=== PATIENT | male | born 1960 | race Caucasian/White ===

== ENCOUNTER 2020-03-25 07:35 | Outpatient (REF) | payer MEDICARE, SELFPAY ==
[2020-03-25 08:45] LABS: MANUAL DIFF FLAG NO
[2020-03-25 08:50] LABS: Basophils Percent Auto 0.3 % (0-2); Eosinophils Absolute Auto 0.2 X10*3/uL (0.0-0.4); Eosinophils Percent Auto 2.4 % (0-4); Hemoglobin 13.1 g/dl (14.0-18.0); Imm Gran Abs Auto 0.03 X10*3/uL (0.00-0.03); Imm Gran Pct Auto 0.5 % (0.0-0.4); Lymphocytes Absolute Auto 2.2 X10*3/uL (1.2-4.9); Lymphocytes Percent Auto 35.3 % (20-40); Mean Corpuscular HGB Conc 33.6 g/dl (31.0-36.0); Mean Corpuscular Hemoglobin 31.2 pg (27.0-33.0); Mean Corpuscular Volume 92.9 fL (80-98); Mean Platelet Volume 11.1 fL (9.4-12.4); Monocytes Absolute Auto 0.6 X10*3/uL (0.1-1.2); Neutrophils Absolute Auto 3.3 X10*3/uL (2.0-8.3); Neutrophils Percent Auto 52.5 % (45-73); Platelet Count 233 X10*3/uL (160-400); Red Cell Distribution Width 12.6 % (11.0-16.0); White Blood Count 6.2 X10*3/uL (4.8-10.8)
[2020-03-25 09:13] LABS: Alanine Aminotransferase 33 U/L (0-40); Albumin Level 4.6 g/dL (3.5-5.0); Alkaline Phosphatase 56 U/L (39-117); Anion Gap 12 (12-20); Aspartate Amino Transferase 25 U/L (5-37); Bilirubin Total 0.6 mg/dL (0.0-1.0); Blood Urea Nitrogen 12 mg/dL (9-16); Calcium 9.2 mg/dL (8.4-10.2); Carbon Dioxide 27 mmol/L (22-29); Chloride 106 mmol/L (96-108); Cholesterol 188 mg/dL; Estimated Glomerular Filt Rate > 60; Glucose Fasting 97 mg/dL (60-99); HDL Cholesterol 32 mg/dL; Iron 172 mcg/dL (45-160); LDL Cholesterol Calculated 95 mg/dl; Percent Iron Saturation 42 % (15-50); Potassium 4.4 mmol/l (3.3-5.1); Sodium 141 mmol/L (135-145); Total Iron Binding Capacity 412 mcg/dL (228-428); Total Protein 6.9 g/dL (6.5-8.0); Triglycerides 305 mg/dL; Unsaturated Iron Binding 240 ug/dL
== END 2020-03-25 07:36 | disposition home or self-care (01) ==
LOC: HO.LAB 07:35
PROVIDERS: Visit Provider Internal Medicine
DX: E78.5 Hyperlipidemia, unspecified (principal); I10 Essential (primary) hypertension; D64.9 Anemia, unspecified
CPT/HCPCS: 36415; 80053; 80061; 83540; 85025

== ENCOUNTER 2020-04-24 10:35 | Outpatient (REF) | payer MEDICARE, SELFPAY ==
[2020-04-24 13:38] LABS: Iron 158 mcg/dL (45-160); Percent Iron Saturation 36 % (15-50); Total Iron Binding Capacity 444 mcg/dL (228-428); Unsaturated Iron Binding 286 ug/dL
[2020-04-24 13:56] LABS: Ferritin 221 ng/mL (20-250); Vitamin D 25-OH Total 15.6 ng/mL (>30)
== END 2020-04-24 10:36 | disposition home or self-care (01) ==
LOC: HO.10HDL 10:35
PROVIDERS: PCP Internal Medicine; Visit Provider Internal Medicine
DX: N40.0 Benign prostatic hyperplasia without lower urinary tract symptoms (principal); D64.9 Anemia, unspecified; I10 Essential (primary) hypertension
CPT/HCPCS: 82306; 82728; 83540; 84153

== ENCOUNTER 2020-08-04 08:49 | Outpatient (REF) | payer MEDICARE, MEDICAID, SELFPAY ==
--- NOTE | ~2020-08-04 | XR_ITS ---
EXAMINATION: XR LUMBOSACRAL SPINE CLINICAL INFORMATION: Low back pain. COMPARISON: None TECHNIQUE: 3 views. FINDINGS: There is normal lumbar lordosis. The vertebral heights, alignment and disc heights are normal. There is no visible acute fracture or dislocation. No lytic process is seen. There are large bridging osteophytes ventrally and laterally at the upper and mid lumbar spine level. The paravertebral soft tissues are normal. XR/XR lumbar spine 2-3V IMPRESSION: Large bridging syndesmophytes in ventral and lateral upper and mid lumbar spine region. No acute fracture or lytic process.
[2020-08-04 10:10] LABS: Anion Gap 14 (12-20); Blood Urea Nitrogen 13 mg/dL (9-16); Calcium 9.9 mg/dL (8.4-10.2); Carbon Dioxide 27 mmol/L (22-29); Chloride 104 mmol/L (96-108); Cholesterol 178 mg/dL; Estimated Glomerular Filt Rate > 60; Glucose Fasting 112 mg/dL (60-99); HDL Cholesterol 37 mg/dL; LDL Cholesterol Calculated 93 mg/dl; Potassium 4.6 mmol/L (3.3-5.1); Sodium 140 mmol/L (135-145); Triglycerides 243 mg/dL
[2020-08-04 10:33] LABS: Vitamin D 25-OH Total 28.3 ng/mL (>30)
== END 2020-08-04 08:50 | disposition home or self-care (01) ==
LOC: HO.LAB 08:49
PROVIDERS: PCP Internal Medicine; Visit Provider Internal Medicine
DX: E78.1 Pure hyperglyceridemia (principal); M54.9 Dorsalgia, unspecified; E55.9 Vitamin D deficiency, unspecified
CPT/HCPCS: 36415; 72100; 80048; 80061; 82306

== ENCOUNTER 2020-08-12 07:13 | Outpatient (REF) | payer MEDICARE, MEDICAID, SELFPAY ==
--- NOTE | ~2020-08-12 | MR_ITS ---
EXAMINATION: MR LUMBAR SPINE WITHOUT CONTRAST CLINICAL INFORMATION: Lower back pain. Bridging osteophyte on x-ray. COMPARISON: Plain films of the lumbar spine 08/04/2020. TECHNIQUE: MRI of the lumbar spine was obtained using routine sequences without contrast. FINDINGS: VERTEBRAL BODIES AND PARASPINAL STRUCTURES: There is anatomic alignment of the vertebral bodies. There is loss of signal from the intervertebral discs at L3-L4, L4-L5 and L5-S1. There are multilevel degenerative endplate contour changes. Fatty endplate changes seen anteriorly at multiple levels. Vertebral body heights are maintained and no fractures are demonstrated. There is an area of increased T1 and T2 signal in the body of L5 inferiorly and anteriorly, most consistent with a hemangioma. As demonstrated on the x-rays, there are prominent bridging osteophytes on the right at L1-L2 and L2-L3, and there are anterior osteophytes at multiple levels, most prominent at L3-L4 toward the right. Overall, marrow signal is homogenous. There are bilateral renal cysts, the largest at the upper pole of the right kidney. There are moderate to severe degenerative changes of the sacroiliac joints. Visualized pelvic structures are unremarkable. There is moderate atrophy of the paraspinal and psoas muscles. CONUS MEDULLARIS AND CAUDA EQUINA: Normal, terminating at the level of L1. The lower thoracic spinal cord appears normal. The cauda equina nerve roots and filum terminale appear normal. SPINAL LEVELS: T12-L1: There is mild bilateral facet arthropathy. Disc contour is normal. No central stenosis or foraminal narrowing. L1-L2: There is mild left facet arthropathy with small facet joint effusion. Disc contour is normal. There is no central stenosis. The neural foramina are patent bilaterally. L2-L3: There is bilateral facet arthropathy with a small facet joint effusion on the right. Posterior disc contour is normal. There is no central stenosis. The neural foramina are patent bilaterally. L3-L4: There is mild to moderate bilateral facet arthropathy with ligamenta flava hypertrophy and facet joint effusions. There is a mild diffuse disc bulge, but there is no central stenosis and neural foramina are patent. L4-L5: There is mild to moderate bilateral facet arthropathy. There is a posterior disc protrusion with an annular fissure which extends into the neural foramina bilaterally, more prominently on the left, and there is impingement on the exiting left L4 nerve root inferiorly. There is mild narrowing of the bilateral subarticular recesses. There is no central stenosis. L5-S1: There is moderate bilateral facet arthropathy. There is a central and right paracentral disc protrusion which distorts the ventral thecal sac and impinges on and displaces the traversing right S1 nerve root. The protrusion extends into the inferior right neural foramen with impingement on the exiting right L5 nerve root. There is mild to moderate central stenosis. MR/MR lumbar spine wo con IMPRESSION: 1. At L5-S1 there is a posterior disc protrusion which distorts the ventral thecal sac and impinges on the traversing right S1 nerve root. There is also impingement on the exiting right L5 nerve root. 2. At L4-L5 there is facet arthropathy and is a posterior disc protrusion more prominent on the left, and there is impingement on the exiting left L4 nerve root. There is narrowing of the bilateral subarticular recesses. 3. Milder spondylitic and facet arthropathic changes are demonstrated at other levels as described above. Prominent marginal osteophytes are seen at multiple levels, most likely degenerative.
== END 2020-08-12 07:14 | disposition home or self-care (01) ==
LOC: HO.MRI 07:13
PROVIDERS: Visit Provider Internal Medicine
DX: M54.5 Low back pain (principal); M25.78 Osteophyte, vertebrae
CPT/HCPCS: 72148

== ENCOUNTER 2021-03-31 06:36 | Outpatient (REF) | payer MEDICARE, MEDICAID, SELFPAY ==
[2021-03-31 06:46] LABS: MANUAL DIFF FLAG NO
[2021-03-31 07:23] LABS: Appearance Urine CLEAR; Color Urine YELLOW; Glucose Urine UA NEG (NEG); Leukocyte Esterase Urine NEG (NEG); Nitrite Urine NEG (NEG); Specific Gravity - Urine 1.025 (1.005-1.025); Urine Blood NEG (NEG); Urine Ketones NEG (NEG); Urine Protein NEG (NEG-TRACE)
[2021-03-31 07:25] LABS: Basophils Percent Auto 0.4 % (0-2); Eosinophils Absolute Auto 0.2 X10*3/uL (0.0-0.4); Eosinophils Percent Auto 2.7 % (0-4); Hematocrit 40.7 % (42.0-52.0); Hemoglobin 13.6 g/dl (14.0-18.0); Imm Gran Abs Auto 0.01 X10*3/uL (0.00-0.03); Imm Gran Pct Auto 0.1 % (0.0-0.4); Lymphocytes Absolute Auto 2.7 X10*3/uL (1.2-4.9); Lymphocytes Percent Auto 39.7 % (20-40); Mean Corpuscular HGB Conc 33.4 g/dl (31.0-36.0); Mean Corpuscular Hemoglobin 30.8 pg (27.0-33.0); Mean Corpuscular Volume 92.3 fL (80.0-98.0); Mean Platelet Volume 11.3 fL (9.4-12.4); Monocytes Absolute Auto 0.6 X10*3/uL (0.1-1.2); Monocytes Percent Auto 9.4 % (2-11); Neutrophils Absolute Auto 3.2 x10*3/uL (2.0-8.3); Neutrophils Percent Auto 47.7 % (45-73); Platelet Count 283 X10*3/uL (160-400); Red Blood Count 4.41 X10*6/uL (4.60-5.80); Red Cell Distribution Width 12.4 % (11.0-16.0); White Blood Count 6.7 X10*3/uL (4.8-10.8)
[2021-03-31 07:56] LABS: Estimated Average Glucose 114 mg/dL; Hemoglobin A1c % 5.6 %
[2021-03-31 07:59] LABS: Microalbum/Creatinine Ratio Ur 8.5 ug/mg cr
[2021-03-31 08:20] LABS: Alanine Aminotransferase 32 U/L (0-40); Albumin Level 4.9 g/dL (3.5-5.0); Alkaline Phosphatase 63 U/L (39-117); Anion Gap 12 (12-20); Aspartate Amino Transferase 25 U/L (5-37); Bilirubin Total 0.7 mg/dL (0.0-1.0); Blood Urea Nitrogen 14 mg/dL (9-16); Calcium 10.4 mg/dL (8.4-10.2); Carbon Dioxide 27 mmol/L (22-29); Chloride 107 mmol/L (96-108); Cholesterol 179 mg/dL; Estimated Glomerular Filt Rate > 60; Glucose Fasting 117 mg/dL (60-99); HDL Cholesterol 34 mg/dL; LDL Cholesterol Calculated 101 mg/dl; Potassium 4.3 mmol/L (3.3-5.1); Sodium 142 mmol/L (135-145); Total Protein 7.5 g/dL (6.5-8.0); Triglycerides 222 mg/dL
[2021-03-31 08:25] LABS: Prostate Specific Antigen Scr 0.62 ng/mL (<0.05-4.0); Vitamin D 25-OH Total 29.6 ng/mL (>30)
== END 2021-03-31 06:37 | disposition home or self-care (01) ==
LOC: HO.LAB 06:36
PROVIDERS: PCP Internal Medicine; Visit Provider Internal Medicine
DX: Z00.00 Encounter for general adult medical examination without abnormal findings (principal); E78.5 Hyperlipidemia, unspecified; I10 Essential (primary) hypertension; R35.1 Nocturia; R73.03 Prediabetes; E55.9 Vitamin D deficiency, unspecified; Z12.5 Encounter for screening for malignant neoplasm of prostate
CPT/HCPCS: 36415; 80053; 80061; 81003; 82043; 82306; 83036; 84153; 85025

== ENCOUNTER 2022-02-02 07:32 | Outpatient (REF) | payer MEDICARE, MEDICAID, SELFPAY ==
[2022-02-02 07:42] LABS: MANUAL DIFF FLAG NO
[2022-02-02 08:18] LABS: Basophils Absolute Auto 0.1 X10*3/uL (0.0-0.2); Basophils Percent Auto 0.8 % (0-2); Eosinophils Absolute Auto 0.2 X10*3/uL (0.0-0.4); Eosinophils Percent Auto 2.8 % (0-4); Hemoglobin 13.4 g/dl (14.0-18.0); Imm Gran Abs Auto 0.02 X10*3/uL (0.00-0.03); Imm Gran Pct Auto 0.3 % (0.0-0.4); Lymphocytes Absolute Auto 2.5 X10*3/uL (1.2-4.9); Lymphocytes Percent Auto 39.3 % (20-40); Mean Corpuscular HGB Conc 33.5 g/dl (31.0-36.0); Mean Corpuscular Hemoglobin 30.9 pg (27.0-33.0); Mean Corpuscular Volume 92.4 fL (80.0-98.0); Mean Platelet Volume 11.2 fL (9.4-12.4); Monocytes Absolute Auto 0.7 X10*3/uL (0.1-1.2); Monocytes Percent Auto 10.7 % (2-11); Neutrophils Percent Auto 46.1 % (45-73); Platelet Count 289 X10*3/uL (160-400); Red Blood Count 4.33 X10*6/uL (4.60-5.80); Red Cell Distribution Width 12.7 % (11.0-16.0); White Blood Count 6.5 X10*3/uL (4.8-10.8)
[2022-02-02 08:20] LABS: Estimated Average Glucose 114 mg/dL; Hemoglobin A1c % 5.6 %
[2022-02-02 08:43] LABS: Creatinine Urine 116.11 mg/dL
[2022-02-02 08:45] LABS: Alanine Aminotransferase 29 U/L (0-40); Albumin Level 4.8 g/dL (3.5-5.0); Alkaline Phosphatase 63 U/L (39-117); Anion Gap 16 (12-20); Aspartate Amino Transferase 28 U/L (5-37); Bilirubin Total 0.4 mg/dL (0.0-1.0); Blood Urea Nitrogen 12 mg/dL (9-16); Calcium 9.7 mg/dL (8.4-10.2); Carbon Dioxide 25 mmol/L (22-29); Chloride 105 mmol/L (96-108); Cholesterol 170 mg/dL; Estimated Glomerular Filt Rate > 60; Glucose Fasting 113 mg/dL (60-99); HDL Cholesterol 33 mg/dL; LDL Cholesterol Calculated 97 mg/dl; Potassium 4.4 mmol/L (3.3-5.1); Sodium 142 mmol/L (135-145); Total Protein 7.6 g/dL (6.5-8.0); Triglycerides 201 mg/dL
[2022-02-02 09:08] LABS: Prostate Specific Antigen 0.59 ng/mL (<0.05-4.0)
== END 2022-02-02 07:33 | disposition home or self-care (01) ==
LOC: HO.LAB 07:32
PROVIDERS: PCP Internal Medicine; Visit Provider Internal Medicine
DX: Z12.5 Encounter for screening for malignant neoplasm of prostate (principal); R73.03 Prediabetes; N40.0 Benign prostatic hyperplasia without lower urinary tract symptoms; M19.90 Unspecified osteoarthritis, unspecified site; E78.5 Hyperlipidemia, unspecified
CPT/HCPCS: 36415; 80053; 80061; 82043; 83036; 84153; 85025

== ENCOUNTER 2022-08-12 07:39 | Outpatient (REF) | payer MEDICARE, MEDICAID, SELFPAY ==
--- NOTE | ~2022-08-12 | XR_ITS ---
EXAMINATION: XR KNEES, STANDING AP BILATERAL XR KNEE, RIGHT XR KNEE, LEFT CLINICAL INFORMATION: Bilateral knee pain. COMPARISON: Standing AP knees and left knee radiographs 06/12/2013. TECHNIQUE: Bilateral standing AP view of the knees is performed. Each knee is also imaged in lateral and axial patella views. FINDINGS: Right: Prior total knee arthroplasty. Hardware intact. Prosthesis appears similar to prior exam. No fracture, dislocation, destructive process, or osteolysis. No suprapatellar effusion. Axial view patella shows no lateralization or tilting. Left: Prior knee arthroplasty. Hardware intact. Prosthesis appears similar to prior exam. No fracture, dislocation, destructive process, or osteolysis. Small corticated heterotopic bone anterior knee is stable from prior radiographs 2013. Axial view patella shows mild patellofemoral joint narrowing with lateral patellar spur. No lateralization or tilting patella. XR/XR knee standing BI IMPRESSION: -Bilateral: Prior knee arthroplasty. Hardware intact. No destructive process. No effusion. -Left: Mild patellofemoral joint narrowing with lateral patellar spur.
--- NOTE | ~2022-08-12 | XR_ITS ---
EXAMINATION: XR KNEES, STANDING AP BILATERAL XR KNEE, RIGHT XR KNEE, LEFT CLINICAL INFORMATION: Bilateral knee pain. COMPARISON: Standing AP knees and left knee radiographs 06/12/2013. TECHNIQUE: Bilateral standing AP view of the knees is performed. Each knee is also imaged in lateral and axial patella views. FINDINGS: Right: Prior total knee arthroplasty. Hardware intact. Prosthesis appears similar to prior exam. No fracture, dislocation, destructive process, or osteolysis. No suprapatellar effusion. Axial view patella shows no lateralization or tilting. Left: Prior knee arthroplasty. Hardware intact. Prosthesis appears similar to prior exam. No fracture, dislocation, destructive process, or osteolysis. Small corticated heterotopic bone anterior knee is stable from prior radiographs 2013. Axial view patella shows mild patellofemoral joint narrowing with lateral patellar spur. No lateralization or tilting patella. XR/XR knee RT 2V IMPRESSION: -Bilateral: Prior knee arthroplasty. Hardware intact. No destructive process. No effusion. -Left: Mild patellofemoral joint narrowing with lateral patellar spur.
--- NOTE | ~2022-08-12 | XR_ITS ---
EXAMINATION: XR KNEES, STANDING AP BILATERAL XR KNEE, RIGHT XR KNEE, LEFT CLINICAL INFORMATION: Bilateral knee pain. COMPARISON: Standing AP knees and left knee radiographs 06/12/2013. TECHNIQUE: Bilateral standing AP view of the knees is performed. Each knee is also imaged in lateral and axial patella views. FINDINGS: Right: Prior total knee arthroplasty. Hardware intact. Prosthesis appears similar to prior exam. No fracture, dislocation, destructive process, or osteolysis. No suprapatellar effusion. Axial view patella shows no lateralization or tilting. Left: Prior knee arthroplasty. Hardware intact. Prosthesis appears similar to prior exam. No fracture, dislocation, destructive process, or osteolysis. Small corticated heterotopic bone anterior knee is stable from prior radiographs 2013. Axial view patella shows mild patellofemoral joint narrowing with lateral patellar spur. No lateralization or tilting patella. XR/XR knee LT 2V IMPRESSION: -Bilateral: Prior knee arthroplasty. Hardware intact. No destructive process. No effusion. -Left: Mild patellofemoral joint narrowing with lateral patellar spur.
== END 2022-08-12 07:40 | disposition home or self-care (01) ==
LOC: HO.HOSX 07:39
PROVIDERS: Visit Provider Physician Assistant
DX: M25.561 Pain in right knee (principal); Z96.652 Presence of left artificial knee joint
CPT/HCPCS: 73560; 73565; 99202

== ENCOUNTER → 2022-08-26 10:37 | Outpatient (BNVA) | payer MEDICARE, MEDICAID, SELFPAY | PROVIDERS: PCP Internal Medicine; Visit Provider Orthopaedic Surgery | DX: T84.84XA Pain due to internal orthopedic prosthetic devices, implants and grafts, initial encounter (principal); Z96.652 Presence of left artificial knee joint | CPT/HCPCS: 99212 ==

== ENCOUNTER → 2022-09-27 14:17 | Outpatient (BNVA) | payer MEDICARE, MEDICAID, SELFPAY | PROVIDERS: PCP Internal Medicine; Visit Provider Internal Medicine | DX: M25.562 Pain in left knee (principal); Z96.652 Presence of left artificial knee joint | CPT/HCPCS: 99202 ==

== ENCOUNTER 2023-02-15 06:34 | Outpatient (REF) | payer MEDICARE, MEDICAID, SELFPAY ==
[2023-02-15 06:48] LABS: MANUAL DIFF FLAG NO
[2023-02-15 07:20] LABS: Basophils Percent Auto 0.6 % (0-2); Eosinophils Absolute Auto 0.2 X10*3/uL (0.0-0.4); Eosinophils Percent Auto 2.7 % (0-4); Hematocrit 43.6 % (42.0-52.0); Hemoglobin 14.7 g/dl (14.0-18.0); Imm Gran Abs Auto 0.01 X10*3/uL (0.00-0.03); Imm Gran Pct Auto 0.1 % (0.0-0.4); Lymphocytes Absolute Auto 2.5 X10*3/uL (1.2-4.9); Lymphocytes Percent Auto 37.3 % (20-40); Mean Corpuscular HGB Conc 33.7 g/dl (31.0-36.0); Mean Corpuscular Hemoglobin 30.8 pg (27.0-33.0); Mean Corpuscular Volume 91.2 fL (80.0-98.0); Mean Platelet Volume 10.8 fL (9.4-12.4); Monocytes Absolute Auto 0.7 X10*3/uL (0.1-1.2); Monocytes Percent Auto 10.5 % (2-11); Neutrophils Absolute Auto 3.3 x10*3/uL (2.0-8.3); Neutrophils Percent Auto 48.8 % (45-73); Platelet Count 303 X10*3/uL (160-400); Red Blood Count 4.78 X10*6/uL (4.60-5.80); Red Cell Distribution Width 12.6 % (11.0-16.0); White Blood Count 6.7 X10*3/uL (4.8-10.8)
[2023-02-15 07:34] LABS: Estimated Average Glucose 108 mg/dL; Hemoglobin A1c % 5.4 % (<6.0)
[2023-02-15 07:54] LABS: Alanine Aminotransferase 27 U/L (0-40); Alkaline Phosphatase 64 U/L (39-117); Anion Gap 16 (12-20); Aspartate Amino Transferase 25 U/L (5-37); Bilirubin Total 0.6 mg/dL (0.0-1.0); Blood Urea Nitrogen 15 mg/dL (9-16); Calcium 10.3 mg/dL (8.4-10.2); Carbon Dioxide 26 mmol/L (22-29); Chloride 104 mmol/L (96-108); Cholesterol 157 mg/dL (<200); Estimated Glomerular Filt Rate > 60; Glucose Fasting 107 mg/dL (60-99); HDL Cholesterol 36 mg/dL (>40); LDL Cholesterol Calculated 89 mg/dL (<100); Sodium 142 mmol/L (135-145); Total Protein 7.9 g/dL (6.5-8.0); Triglycerides 164 mg/dL (<150)
[2023-02-15 08:16] LABS: Prostate Specific Antigen 0.74 ng/mL (<0.05-4.0)
[2023-02-15 08:37] LABS: Appearance Urine Clear; Color Urine Yellow; Glucose Urine UA Negative (Negative); Leukocyte Esterase Urine Negative (Negative); Nitrite Urine Negative (Negative); PH 6.5 (5.0-9.0); Specific Gravity - Urine 1.015 (1.005-1.025); Urine Blood Negative (Negative); Urine Ketones Negative (Negative); Urine Protein Negative (Neg-Trace)
== END 2023-02-15 06:35 | disposition home or self-care (01) ==
LOC: HO.LAB 06:34
PROVIDERS: PCP Internal Medicine; Visit Provider Internal Medicine
DX: I10 Essential (primary) hypertension (principal); E78.5 Hyperlipidemia, unspecified; R35.1 Nocturia; Z12.5 Encounter for screening for malignant neoplasm of prostate
CPT/HCPCS: 36415; 80053; 80061; 81003; 83036; 84153; 85025

== ENCOUNTER 2023-03-22 06:20 | Day surgery (SDC) | payer MEDICARE, MEDICAID, SELFPAY ==
[2023-03-16 08:27] VITALS: BMI 28.3
--- NOTE | 2023-03-21 08:25 | HO.ANESPROP2 ---
Documented by User: Nila Carter NP 03/21/23 08:26 HPI - Anesthesia Eval Consult details Narrative: 62yo M for Upper Endoscopy and Colonoscopy PMF Active Problems Active Problems: All Active Problems (Updated 03/16/23 @ 08:22 by Sandie Hernandez RN) Left knee pain (Acute) History of left knee replacement (Acute) Past Medical History Medical History GERD (gastroesophageal reflux disease) Hx of seizure disorder Hypertension High cholesterol Surgical History Surgical History Status post left knee replacement H/O colonoscopy Status post right knee replacement Social History Patient Tobacco Use Status: Never used Tobacco Use of substances other than those prescribed or required for medical reasons: Yes Substance Use Frequency: Daily Are you DNR?: No Advance Directives: No Advance Directives Information Provided: Yes Current occupational status: unemployed Meds Allergies Allergy/AdvReac Type Severity Reaction Status Date / Time No Known Allergies Allergy Mild NOT Verified 09/27/22 14:25 APPLICABLE Home Medications Medication Instructions Recorded Confirmed Last Taken Type atorvastatin 80 mg tablet 80 mg PO BEDTIME 08/12/22 09/27/22 Unknown History fenofibrate 160 mg tablet 160 mg PO DAILY 08/12/22 03/16/23 Unknown History levetiracetam 250 mg tablet 250 mg PO BID 08/12/22 09/27/22 Unknown History losartan 50 mg tablet 50 mg PO DAILY 08/12/22 09/27/22 Unknown History gemfibrozil 600 mg tablet 600 mg PO DAILY 03/16/23 03/16/23 Unknown History Exam Height,Weight and Vital Signs: Height 5 ft 8 in Weight 84.368 kg Pertinent Lab Results Pertinent Lab Results: Laboratory Tests 02/15/23 06:44 WBC 6.7 Hgb 14.7 Hct 43.6 Plt Count 303 Sodium 142 Potassium 4.0 Chloride 104 Carbon Dioxide 26 BUN 15 Creatinine 0.76 Assessment and Plan Assessment Anesthesia Assessment: Chart Reviewed Documented by User: Daysi Wing MD 03/22/23 07:53 PMFSH Past Medical History Medical History GERD (gastroesophageal reflux disease) Hx of seizure disorder Hypertension High cholesterol Surgical History Surgical History Status post left knee replacement H/O colonoscopy Status post right knee replacement History of Problems with Anesthesia: No Social History Patient Tobacco Use Status: Never used Tobacco Use of substances other than those prescribed or required for medical reasons: Yes Substance Use Frequency: Daily Are you DNR?: No Advance Directives: No Advance Directives Information Provided: Yes Current occupational status: unemployed Meds Allergies Allergy/AdvReac Type Severity Reaction Status Date / Time No Known Allergies Allergy Mild NOT Verified 09/27/22 14:25 APPLICABLE Home Medications Medication Instructions Recorded Confirmed Last Taken Type atorvastatin 80 mg tablet 80 mg PO BEDTIME 08/12/22 09/27/22 Unknown History fenofibrate 160 mg tablet 160 mg PO DAILY 08/12/22 03/16/23 Unknown History levetiracetam 250 mg tablet 250 mg PO BID 08/12/22 09/27/22 Unknown History losartan 50 mg tablet 50 mg PO DAILY 08/12/22 09/27/22 Unknown History gemfibrozil 600 mg tablet 600 mg PO DAILY 03/16/23 03/16/23 Unknown History Exam Airway Mallampati Class: III TM Dist: >3cm Neck ROM: Full Partial: Upper and Lower Loose/Missing/Broken Teeth: Yes, Upper and Lower Heart: RRR Lungs: CTA Assessment and Plan Assessment Anesthesia Assessment: Anesthesia Plan Discussed Final Anesthetic Review History of Problems with Anesthesia: No NPO: Yes ASA Class: II Final Preanesthetic Review: Meds/Allgs Chart Reviewed, Consent Obtained/Reviewed and Anes Risks/Benef Reviewed Patient Risk: Low Procedure Risk: Intermediate Anesthetic Plan Anesthetic Plan: MAC: Disposition: Standard PACU
[2023-03-22 07:02] VITALS: BP 134/82; PULSE 86; RESP 16; TEMP 37.7; O2SAT 96; BMI 27.4
--- NOTE | 2023-03-22 07:24 | MHC.SHP ---
Pre-Procedural Eval Section A Date of Service: 03/22/23 Section B Chief Complaint: Gastro-esophageal reflux disease without esophagit Details of Present Illness: see H&P no changes Relevant Family History (Specify if Yes): No Relevant Social History: None Present Medications: see Short Stay Collaborative assessment Medical History: No relevant PMH History of Previous Operations: No relevant previous surgery Allergies: Allergies Allergy/AdvReac Type Severity Reaction Status Date / Time No Known Allergies Allergy Mild NOT Verified 09/27/22 14:25 APPLICABLE Review of Systems Sugical H&P ROS: Negative: Constitution, Cardiovascular, Respiratory, Neurological, Psychiatric, Hem-Onc, Allergic/Immunologic, Gastrointestinal, Genitourinary, Musculoskeletal, Integumentary, Endocrine and Eyes/Ears/Nose/Throat Exam Surgical H&P Exam: Normal: HEENT, Normal: Heart, Normal: Lungs, Normal: Extremities, Normal: Abdomen, Normal: Skin and Normal: Neurological Plan Diagnosis/Plan: Unchanged I have reviewed the history and physical and performed a pertinent physical examination on my patient. No changes have occurred unless specified. Time Spent With Patient Time: Total time managing care of this patient today ____ minutes.
[2023-03-22] MEDS: Lactated Ringers 1,000 ML 100 ML IVCONT (07:26)
[2023-03-22 08:13] VITALS: BP 100/65; PULSE 69; RESP 16; TEMP 37; O2SAT 100
--- NOTE | 2023-03-22 08:16 | PM.OP ---
Brief Operative Note Date of Service: 03/22/23 Pre-op diagnosis: gerd screening Post-op diagnosis: same Procedure: egd colonoscopy Surgeon: Jama Waite MD Anesthesia: MAC Was an Guest Service Representative used for this Procedure?: No Estimated blood loss (mL): 2 Pathology: other Condition: stable Disposition: PACU
[2023-03-22 08:28] VITALS: BP 105/72; PULSE 68; RESP 18; TEMP 36.9; O2SAT 97
--- NOTE | 2023-03-22 10:21 | OP_ITS ---
DATE OF SERVICE: 03/22/2023 SURGEON: Jama Waite MD INDICATIONS: 1. Gastroesophageal reflux disease. 2. Colon cancer screening. PREOPERATIVE DIAGNOSIS: POSTOPERATIVE DIAGNOSIS: PROCEDURE PERFORMED: Upper endoscopy with biopsy, colonoscopy to the terminal ileum. ESTIMATED BLOOD LOSS: COMPLICATIONS: ANESTHESIA: Monitored anesthesia care. ASSISTANTS: SPECIMENS: DESCRIPTION OF PROCEDURE: A history and physical performed. The risks and benefits of the procedure were explained to the patient. Informed consent was obtained. The patient was placed in the left lateral decubitus position. The Olympus video gastroscope was introduced into the esophagus, stomach, and duodenum. Examination was performed. The scope was removed. He was repositioned for colonoscopy. A digital rectal exam was performed, and was found to be normal. The Olympus pediatric video colonoscope was introduced into the rectum and advanced to the cecum. The cecum was identified by transillumination, palpation, and identification of ileocecal valve. Examination was performed. The scope was removed. He tolerated both procedures well and was returned to the recovery area in stable condition. FINDINGS: Upper endoscopy: 1. Esophagus: The esophagus was normal. There was mild esophagitis right at the EG junction. Biopsies were obtained from the EG junction. 2. Stomach: The stomach showed 2 superficial ulcers in the antrum with eschar. There was no active bleeding. The largest measured approximately 8 x 10 mm, the 2nd measured approximately 3 x 8 mm. Biopsies were obtained from the antrum and around the ulcers. 3. Duodenum: The bulb and 2nd portion were normal. Colonoscopy: The terminal ileum was examined and appeared normal. The visualized colonic mucosa was normal. The quality of the prep was good. No polyps were identified. There was mild sigmoid diverticulosis. Retroflexed examination showed moderate-sized internal hemorrhoids. IMPRESSION: 1. Gastric ulcers. 2. Gastroesophageal reflux disease. 3. Normal colonoscopy. RECOMMENDATION: 1. Follow up the biopsy results. 2. Repeat colonoscopy is recommended in 10 years for average risk individuals. MD JANES Matos/KRISTINL / [phone]
== END 2023-03-22 09:17 | disposition home or self-care (01) ==
PROVIDERS: PCP Internal Medicine; Visit Provider Internal Medicine Gastroenterology
PROC: (CPT 43239; principal; 2023-03-22 07:30)
DX: Z12.11 Encounter for screening for malignant neoplasm of colon (principal); K57.30 Diverticulosis of large intestine without perforation or abscess without bleeding; K64.8 Other hemorrhoids; K21.9 Gastro-esophageal reflux disease without esophagitis; K25.9 Gastric ulcer, unspecified as acute or chronic, without hemorrhage or perforation; K20.80 Other esophagitis without bleeding; I10 Essential (primary) hypertension; E78.5 Hyperlipidemia, unspecified; Z79.899 Other long term (current) drug therapy; Z96.653 Presence of artificial knee joint, bilateral; Z87.891 Personal history of nicotine dependence
CPT/HCPCS: 43239; G0121; 88305; 88342; J2250; J2704

== ENCOUNTER 2024-03-29 06:57 | Outpatient (REF) | payer MEDICARE, MEDICAID, SELFPAY ==
[2024-03-29 07:11] LABS: MANUAL DIFF FLAG NO
[2024-03-29 07:28] LABS: Basophils Percent Auto 0.6 % (0-2); Eosinophils Absolute Auto 0.2 X10*3/uL (0.0-0.4); Eosinophils Percent Auto 2.6 % (0-4); Hematocrit 40.1 % (42.0-52.0); Hemoglobin 13.8 g/dl (14.0-18.0); Imm Gran Abs Auto 0.02 X10*3/uL (0.00-0.03); Imm Gran Pct Auto 0.3 % (0.0-0.4); Lymphocytes Absolute Auto 1.8 X10*3/uL (1.2-4.9); Lymphocytes Percent Auto 26.9 % (20-40); Mean Corpuscular HGB Conc 34.4 g/dl (31.0-36.0); Mean Corpuscular Hemoglobin 30.7 pg (27.0-33.0); Mean Corpuscular Volume 89.1 fL (80.0-98.0); Mean Platelet Volume 10.5 fL (9.4-12.4); Monocytes Absolute Auto 0.6 X10*3/uL (0.1-1.2); Monocytes Percent Auto 9.1 % (2-11); Neutrophils Percent Auto 60.5 % (45-73); Platelet Count 272 X10*3/uL (160-400); Red Cell Distribution Width 13.1 % (11.0-16.0); White Blood Count 6.6 X10*3/uL (4.8-10.8)
[2024-03-29 07:42] LABS: Alanine Aminotransferase 39 U/L (0-40); Albumin Level 4.6 g/dL (3.5-5.0); Alkaline Phosphatase 65 U/L (39-117); Anion Gap 13 (12-20); Aspartate Amino Transferase 37 U/L (5-37); Bilirubin Total 0.6 mg/dL (0.0-1.0); Blood Urea Nitrogen 17 mg/dL (9-16); Calcium 9.9 mg/dL (8.4-10.2); Carbon Dioxide 27 mmol/L (22-29); Chloride 107 mmol/L (96-108); Cholesterol 184 mg/dL (<200); Estimated Glomerular Filt Rate > 60; Glucose Fasting 109 mg/dL (60-99); HDL Cholesterol 35 mg/dL (>40); LDL Cholesterol Calculated 107 mg/dL (<100); Potassium 3.8 mmol/L (3.3-5.1); Sodium 143 mmol/L (135-145); Total Protein 7.1 g/dL (6.5-8.0); Triglycerides 210 mg/dL (<150)
[2024-03-29 07:46] LABS: Estimated Average Glucose 114 mg/dL; Hemoglobin A1C 137.0423 umol/L; Hemoglobin A1c % 5.6 % (<6.0); Total Hemoglobin (HGBA1C) 3648.8359 umol/L
[2024-03-29 07:47] LABS: Creatinine Urine 108.51 mg/dL; Microalbum/Creatinine Ratio Ur 6.4 ug/mg cr (<30)
[2024-03-29 07:59] LABS: Appearance Urine Clear; Color Urine Yellow; Glucose Urine UA Negative (Negative); Leukocyte Esterase Urine Negative (Negative); Nitrite Urine Negative (Negative); PH 7.5 (5.0-9.0); Urine Blood Negative (Negative); Urine Ketones Negative (Negative); Urine Protein Negative (Neg-Trace)
[2024-03-29 08:00] LABS: Prostate Specific Antigen 0.86 ng/mL (<0.05-4.0)
--- OUTSIDE RECORDS SUMMARY | 2024-04-03 22:55 | XMS_ITS ---
Author Organization [facility] Address [address] [place] [address] Care Team Providers Care Farm Appraiser Name Role Phone Obed Hanley MD Primary Care Provider Jama Herrera Jr Unavailable [phone] ALLERGIES No Known Allergies REASON FOR VISIT Patient presents today for gerd MEDICATIONS Medication SIG (Take, Route, Frequency, Duration) Notes Start Date End Date Status Fenofibrate 160 MG 1 tablet Orally Once a day for 30 day(s) Active Atorvastatin Calcium 80 MG 1 tablet Oral ly Once a day for 30 day(s) Active levETIRAcetam 250 MG TAKE ONE TABLET BY MOUTH TWICE A DAY Oral for 30 Active Omeprazole 20 MG TAKE 1 CAPSULE BY [facility] ONCE A DAY. for 30 Active Losartan Potassium-HCTZ 50-12.5 MG 1 tablet Orally Once a day for 30 day(s) Active SOCIAL HISTORY Sex Assigned At : Social History Observation Description Sex Assigned At Unknown Alcohol Screen Question Answer Notes Did you have a drink contain ing alcohol in the past year? Yes How often did you have a dri nk containing alcohol in the past year? 2 to 3 times a week (3 points) How many drinks did you have on a typical day when you were drinking in the past year? 1 or 2 drinks (0 point) How often did you have 6 or more drinks on one occasion in the past year? Never (0 point) Points 3 Interpretation Negative PROBLEMS Problem Type ICD Code Onset Dates Problem Status W/U Status Risk SNOMED Code Notes Problem Acute gastric ulcer without hemorrhage or perforation (K25.3) Active confirmed 20679341 VITAL SIGNS BMI 27.82 kg/m2 02/23/2024 Blood pressure systolic 00 mm Hg 02/23/20 24 Blood pressure diastolic 00 mm Hg 024 Height 68 in 02/23/2024 Weight 183 lbs 02/23/2024 Encounters Encounter Location Date Provider Diagnosis [facility] [address] [place] [address] 02/23/2024 Jama Waite Jr Acute gastric ulcer without hemorrhage or perforation K25.3 and Colon cancer screening Z12.11 ASSESSMENTS Encounter Date Diagnosis Assessment Notes Treatment Notes Treatment Clinical Notes 02/23/2024 Acute gastric ulcer without hemorrhage or perforation (ICD-10 - K25.3) Endoscopy material was printed 02/23/2024 Colon cancer screening (ICD-10 - Z12.11) PLAN OF TREATMENT Treatment Notes Assessment Notes Acute gastric ulcer without hemorrhage o r perforation Endoscopy material was printed Future Test Test Name Order Date UPPER GI ENDOSCOPY 03/01/2024 Next Appt Details Follow Up: 1 Year, Reason: Provider Name:Jama toro Jr, 05/08/2024 08:20:00 AM, [address] [place] [address] , [place], [place], [phone],
--- OUTSIDE RECORDS SUMMARY | 2024-04-03 22:56 | XMS_ITS ---
Author Organization [facility] Address [address] [place] [address] Care Team Providers Care Fireman Name Role Phone Obed Hanley MD Primary Care Provider Unavaila Jama Marion Jr REASON FOR VISIT cancel appt Encounters Encounter Location Date Provider Diagnosis [facility] [address] [place] [address] 11/10/2023 Jama Waite Jr PLAN OF TREATMENT Next Appt Details Provider Name:Jama toro Jr, 05/08/2024 08:20:00 AM, [address] [place] [address] , [place], [place], [phone],
--- OUTSIDE RECORDS SUMMARY | 2024-04-03 22:56 | XMS_ITS ---
Author Organization [facility] Address [address] [place] [phone] Care Team Providers Care Pneumatic Jacketer Name Role Phone Obed Hanley MD Primary Care Provider UnavailJama Bal Jr Unavailable REASON FOR VISIT Patient presents today for gerd Encounters Encounter Location Date Provider Diagnosis [facility] [address] [facility] [address] [place] [phone] 11/14/2023 Jama Waite Jr PLAN OF TREATMENT Next Appt Details Provider Name:Jama toro Jr, 05/08/2024 08:20:00 AM, [address] [place] [address] , [place], [place], [phone],
--- OUTSIDE RECORDS SUMMARY | 2024-04-03 22:56 | XMS_ITS | Patient Health Record ---
Author Organization [facility] Address [address] [place] [address] Care Team Providers Care Production Gear Cutter Name Role Phone Obed Hanley MD Primary Care Provider Jama Herrera Jr Unavailable ALLERGIES No Known Allergies REASON FOR REFERRAL No Information MEDICATIONS Medication SIG (Take, Route, Frequency, Duration) Notes Start Date End Date Status Fenofibrate 160 MG 1 tablet Orally Once a day for 30 day(s) Active Atorvastatin Calcium 80 MG 1 tablet Oral ly Once a day for 30 day(s) Active levETIRAcetam 250 MG TAKE ONE TABLET BY MOUTH TWICE A DAY Oral for 30 Active Omeprazole 20 MG TAKE 1 CAPSULE BY [facility] ONCE A DAY. for 30 Active Losartan Potassium-HCTZ 50-12.5 MG 1 tablet Orally Once a day for 30 day(s) Active IMMUNIZATIONS Vaccine Route Administration Date Status Comme nts Influenza Unknown 01/12/2022 Administered SOCIAL HISTORY Sex Assigned At : Social [...] W/U Status Risk SNOMED Code Notes Problem Colon cancer screening (Z12.11) Active confirmed 169371993 Problem Acute gastric ulcer without hemorrhage or perforation (K25.3) Active confirmed 72933338 Problem GERD (gastroesophageal reflux disease) (K21.9) Active confirmed Gastroesophagea l reflux disease (258803944) Problem Gastroesophageal reflux disease, unspecified whether esophagitis present (K21.9) Active confirmed 899277509 VITAL SIGNS Blood pressure diastolic 00 mm Hg 02/23/2024 Height 68 in 02/23/2024 Blood pressure systolic 00 mm Hg 02/23/2024 Weight 183 lbs 02/23/2024 BMI 27.82 kg/m2 02/23/2024 Encounters Encounter Location Date Provider Diagnosis [facility] [address] [place] [phone] 07/04/2023 Jama Waite Jr [facility] [address] [place] [phone] 11/14/2023 Jama Waite Jr [facility] [address] [place] [phone] 02/23/2024 Jama Waite Jr Acute gastric ulcer without hemorrhage or perforation K25.3 and Colon cancer screening Z12.11 [facility] [address] [place] [phone] 07/01/2023 Jama Waite Jr [facility] [address] [place] [phone] 11/10/2023 Jama Waite Jr ASSESSMENTS Encounter Date Diagnosis Assessment Notes Treatment Notes Treatment Clinical Notes 02/23/2024 Colon cancer screening (ICD-10 - Z12.11) 02/23/2024 Acute gastric ulcer without hemorrhage or perforation (ICD-10 - K25.3) Endoscopy material was printed PLAN OF TREATMENT Future Test Test Name Order Date COLONOSCOPY 09/15/2012 UPPER GI ENDOSCOPY 01/03/2023 COLONOSCOPY 01/03/2023 UPPER GI ENDOSCOPY 03/01/2024 Next Appt Details Provider Name:Jama toro Jr, 05/08/2024 08:20:00 AM, [address] [place] [address] , [place], [place], [phone], Insurance Providers Payer Name Payer Address Payer Phone Subscriber Number Group Number Insured Name Patient Relationship to Insured Coverage Start Date Coverage End Date [facility] [id number] [place] [address] [id number] YOANA CASTANEDA Self - patient is the insured MEDICAID OF [facility] [address] [place] [address] [id number] LEONEL YOANA Self - patient is the insured MEDICAL (GENERAL) HISTORY Medical History History ICD Code Hypertension Hyperlipidemia Colonoscopy 03/17, normal, ten-year foll owup Gastroesophageal reflux dise ase, EGD in 03/17, antral ulcers, high-dose PPI, followup endoscopy TBA Seizure disorder Surgical History Surgery Date(Month/Year) right knee replacement 2007 left knee replacement 2005
== END 2024-03-29 06:58 | disposition home or self-care (01) ==
LOC: HO.LAB 06:57
PROVIDERS: PCP Internal Medicine; Visit Provider Internal Medicine
DX: I10 Essential (primary) hypertension (principal); E78.00 Pure hypercholesterolemia, unspecified; Z12.5 Encounter for screening for malignant neoplasm of prostate; R73.03 Prediabetes
CPT/HCPCS: 36415; 80053; 80061; 81003; 82043; 82570; 83036; 84153; 85025

== ENCOUNTER 2024-07-10 06:21 | Day surgery (SDC) | payer MEDICARE, MEDICAID, SELFPAY ==
--- OUTSIDE RECORDS SUMMARY | 2024-04-05 09:35 | XMS_ITS ---
Author Organization [facility] Address [address] [place] [address] Care Team Providers Care Navigating Officer Name Role Phone Obed Hanley MD Primary Care Provider Jama Herrera Jr Unavailable [phone] ALLERGIES No Known Allergies REASON FOR VISIT [...] Omeprazole 20 MG TAKE 1 CAPSULE BY [facility] ONCE A DAY. for 30 Active [...] without hemorrhage or perforation (K25.3) Active confirmed 61915835 VITAL SIGNS BMI 27.82 kg/m2 02/23/2024 Blood pressure systolic 00 mm Hg 02/23/20 24 Blood pressure diastolic 00 mm Hg 024 Height 68 in 02/23/2024 Weight 183 lbs 02/23/2024 Encounters Encounter Location Date Provider Diagnosis [facility] [address] [place] [address] 02/23/2024 Jama Waite Jr Acute gastric ulcer [...] Provider Name:Jama toro Jr, 05/08/2024 08:20:00 AM, [address] [place] [address] , [place], [place], [phone],
--- OUTSIDE RECORDS SUMMARY | 2024-04-05 09:35 | XMS_ITS ---
Author Organization [facility] Address [address] [place] [address] Care Team Providers Care Recreation Establishment Manager Name Role Phone Obed Hanley MD Primary Care Provider UnavailJama Bal Jr Unavailable [phone] REASON FOR VISIT Patient presents today for gerd Encounters Encounter Location Date Provider Diagnosis [facility] [address] [facility] [address] [place] [phone] 11/14/2023 Jama Waite Jr PLAN OF TREATMENT Next Appt Details Provider Name:aJma toro Jr, 05/08/2024 08:20:00 AM, [address] [place] [address] , [place], [place], [phone],
--- OUTSIDE RECORDS SUMMARY | 2024-04-05 09:36 | XMS_ITS ---
Author Organization [facility] Address [address] [place] [phone] Care Team Providers Care Desktop Engineer Name Role Phone Obed Hanley MD Primary Care Provider Unavaila Jama Marion Jr REASON FOR VISIT cancel appt Encounters Encounter Location Date Provider Diagnosis [facility] [address] [place] [address] 11/10/2023 Jama Waite Jr PLAN OF TREATMENT Next Appt Details Provider Name:Jama toro Jr, 05/08/2024 08:20:00 AM, [address] [place] [address] , [place], [place], [phone],
--- OUTSIDE RECORDS SUMMARY | 2024-04-05 09:36 | XMS_ITS | Patient Health Record ---
Author Organization [facility] Address [address] [place] [address] Care Team Providers Care Phone Technician Name Role Phone Obed Hanley MD Primary [...] Omeprazole 20 MG TAKE 1 CAPSULE BY [facility] ONCE A DAY. for 30 [...] Problem Colon cancer screening (Z12.11) Active confirmed 099531394 Problem Acute gastric ulcer without hemorrhage or perforation (K25.3) Active confirmed 53165736 Problem GERD (gastroesophageal reflux disease) (K21.9) Active confirmed Gastroesophagea l reflux disease (175648225) Problem Gastroesophageal reflux disease, unspecified whether esophagitis present (K21.9) Active confirmed 718683689 VITAL SIGNS Blood pressure diastolic 00 mm Hg 02/23/2024 Height 68 in 02/23/2024 Blood pressure systolic 00 mm Hg 02/23/2024 Weight 183 lbs 02/23/2024 BMI 27.82 kg/m2 02/23/2024 Encounters Encounter Location Date Provider Diagnosis [facility] [address] [place] [phone] 07/04/2023 Jama Waite Jr [facility] [address] [place] [phone] 11/14/2023 Jama Waite Jr [facility] [address] [place] [phone] 02/23/2024 Jama Waite Jr Acute gastric ulcer without hemorrhage or perforation K25.3 and Colon cancer screening Z12.11 [facility] [address] [place] [phone] 07/01/2023 Jama Waite Jr [facility] [address] [place] [phone] 11/10/2023 Jama Waite Jr ASSESSMENTS Encounter Date [...] Provider Name:Jama toro Jr, 05/08/2024 08:20:00 AM, [address] [place] [address] , [place], [place], [phone], Insurance Providers Payer Name Payer Address Payer Phone Subscriber Number Group Number Insured Name Patient Relationship to Insured Coverage Start Date Coverage End Date [facility] [address] [place] [address] [id number] YOANA CASTANEDA Self - patient is the insured MEDICAID OF [facility] [address] [facility] [place] [phone] [id number] LEONEL YOANA Self - patient is the insured MEDICAL (GENERAL) HISTORY Medical History History ICD Code Hypertension Hyperlipidemia Colonoscopy 03/17, normal, ten-year foll owup Gastroesophageal reflux dise ase, EGD in 03/17, antral ulcers, high-dose PPI, followup endoscopy TBA Seizure disorder Surgical History Surgery Date(Month/Year) right knee replacement 2007 left knee replacement 2005
[2024-05-04 15:13] VITALS: BMI 27.8
[2024-05-04 15:30] VITALS: BMI 27.8
--- NOTE | 2024-05-07 09:53 | P.CONAN_ITS ---
HPI - Anesthesia Eval Consult details Narrative: 63yo M for Upper Endoscopy PMFSH Active Problems Active Problems: All Active Problems Left knee pain (Acute) History of left knee replacement (Acute) Past Medical History Medical History (Updated 05/04/24 @ 15:32 by Zaida Bird, CANDE) Wears dentures GERD (gastroesophageal reflux disease) Hx of seizure disorder Hypertension High cholesterol Surgical History Surgical History (Updated 05/04/24 @ 15:34 by Zaida Bird, RN) History of esophagogastroduodenoscopy (EGD) (03/23/23) Status post left knee replacement H/O colonoscopy (03/23/23) Status post right knee replacement History of Problems with Anesthesia: No Social History Social History (Updated 05/04/24 @ 15:35 by Zaida Bird, CANDE) Household Members: Spouse Housing: House Are you a primary home health care provider to a significant other at home: No Do you presently have visiting nurse or other home services: No Patient Tobacco Use Status: Never used Tobacco Use of substances other than those prescribed or required for medical reasons: Yes Substance Use Type: Marijuana Substance Use Frequency: Occasionally Poor oral hygiene: Yes (wears full upper and lower dentures) Current occupational status: unemployed Meds Allergies Allergy/AdvReac Type Severity Reaction Status Date / Time No Known Allergies Allergy Mild NOT Verified 05/04/24 15:30 APPLICABLE Home Medications ?Medication ?Instructions ?Recorded ?Confirmed ?Last Taken ?Type atorvastatin 80 mg tablet 80 mg PO BEDTIME 08/12/22 05/04/24 Unknown History fenofibrate 160 mg tablet 160 mg PO DAILY 08/12/22 05/04/24 Unknown History levetiracetam 250 mg tablet 250 mg PO BID 08/12/22 05/04/24 Unknown History losartan 50 mg tablet 50 mg PO DAILY 08/12/22 05/04/24 Unknown History omeprazole 20 mg capsule,delayed 20 mg PO DAILY 05/04/24 05/04/24 Unknown History release Exam Height,Weight and Vital Signs: Height 5 ft 8 in Weight 83.007 kg Assessment and Plan Assessment Anesthesia Assessment: Chart Reviewed Final Anesthetic Review History of Problems with Anesthesia: No
[2024-07-06 08:28] VITALS: BMI 27.8
[2024-07-10 07:01] VITALS: BMI 27.1
[2024-07-10 07:05] VITALS: BP 155/76; PULSE 69; RESP 16; TEMP 37.3; O2SAT 97
--- NOTE | 2024-07-10 07:19 | P.CONAN_ITS ---
[facility] Active Problems Active Problems: All Active Problems Left knee pain (Acute) History of left knee replacement (Acute) Past Medical History Medical History Wears dentures GERD (gastroesophageal reflux disease) Hx of seizure disorder Hypertension High cholesterol Surgical History Surgical History History of esophagogastroduodenoscopy (EGD) (03/23/23) Status post left knee replacement H/O colonoscopy (03/23/23) Status post right knee replacement History of Problems with Anesthesia: No Social History Social History Household Members: Spouse Housing: House Are you a primary health care coordinator to a significant other at home: No Do you presently have visiting nurse or other home services: No Patient Tobacco Use Status: Never used Tobacco Use of substances other than those prescribed or required for medical reasons: Yes Substance Use Type: Marijuana Substance Use Type Other:: last smoked 07/06 Substance Use Frequency: Daily Have you been hit, kicked, punched, or otherwise hurt by someone within the past year? If so, by whom?: No Are you DNR?: No Advance Directives: No Advance Directives Information Provided: Yes Advance Directives on File: No Recently lost weight without trying: No Nutrition Risks: No Nutritional Risk Current occupational status: unemployed Meds Allergies Allergy/AdvReac Type Severity Reaction Status Date / Time No Known Allergies Allergy Mild NOT Verified 07/10/24 07:00 APPLICABLE Active Medications: Current Medications Lactated Ringer's (Lr) 1,000 mls @ 100 mls/hr IVCONT .Q10H [facility] Home Medications ?Medication ?Instructions ?Recorded ?Confirmed ?Last Taken ?Type atorvastatin 80 mg tablet 80 mg PO BEDTIME 08/12/22 07/10/24 Unknown History fenofibrate 160 mg tablet 160 mg PO DAILY 08/12/22 07/10/24 Unknown History levetiracetam 250 mg tablet 250 mg PO BID 08/12/22 07/10/24 07/10/24 05:00 History losartan 50 mg tablet 50 mg PO DAILY 08/12/22 07/10/24 07/10/24 05:00 History omeprazole 20 mg capsule,delayed 20 mg PO DAILY 05/04/24 07/10/24 Unknown History release Exam Height,Weight and Vital Signs: Height 5 ft 8 in Weight 81 kg Last Vital Signs Temp 99.1 F 07/10/24 07:05 Pulse 69 07/10/24 07:05 Resp 16 07/10/24 07:05 BP 155/76 H 07/10/24 07:05 Pulse Ox 97 07/10/24 07:05 O2 Del Method Room Air 07/10/24 07:05 Airway Mallampati Class: III TM Dist: >3cm Neck ROM: Full Partial: Upper and Lower Loose/Missing/Broken Teeth: Yes, Upper and Lower Heart: RRR Lungs: CTA Assessment and Plan Assessment Anesthesia Assessment: Anesthesia Plan Discussed and Chart Reviewed Final Anesthetic Review History of Problems with Anesthesia: No NPO: Yes ASA Class: II Final Preanesthetic Review: Meds/Allgs Chart Reviewed, Consent Obtained/Reviewed and Anes Risks/Benef Reviewed Patient Risk: Low Procedure Risk: Intermediate Anesthetic Plan Anesthetic Plan: MAC: Disposition: Standard PACU
[2024-07-10] MEDS: Lactated Ringers 1,000 ML 100 ML IVCONT (07:20)
--- NOTE | 2024-07-10 07:29 | MHC.SHP ---
Pre-Procedural Eval Section A - 24 Hr Update-Section A only Date of Service: 07/10/24 Section B - Complete if H&P > 30 days Chief Complaint: Acute gastric ulcer without hemorrhage or perforat Details of Present Illness: see H&P no changes Relevant Family History (Specify if Yes): No Relevant Social History: None Present Medications: see Short Stay Collaborative assessment Medical History: No relevant PMH History of Previous Operations: No relevant previous surgery Allergies: Allergies Allergy/AdvReac Type Severity Reaction Status Date / Time No Known Allergies Allergy Mild NOT Verified 07/10/24 07:00 APPLICABLE Review of Systems Sugical H&P ROS: Negative: Constitution, Cardiovascular, Respiratory, Neurological, Psychiatric, Hem-Onc, Allergic/Immunologic, Gastrointestinal, Genitourinary, Musculoskeletal, Integumentary, Endocrine and Eyes/Ears/Nose/Throat Exam Surgical H&P Exam: Normal: HEENT, Normal: Heart, Normal: Lungs, Normal: Extremities, Normal: Abdomen, Normal: Skin and Normal: Neurological Plan Diagnosis/Plan: Unchanged I have reviewed the history and physical and performed a pertinent physical examination on my patient. No changes have occurred unless specified. Time Spent With Patient Time: Total time managing care of this patient today ____ minutes.
[2024-07-10 07:56] VITALS: BP 137/78; PULSE 69; RESP 18; TEMP 36.6; O2SAT 100
[2024-07-10 08:10] VITALS: BP 139/72; PULSE 56; RESP 18; TEMP 36.4; O2SAT 100
--- NOTE | 2024-07-10 09:54 | OP_ITS ---
DATE OF SERVICE: 07/10/2024 SURGEON: Jama Waite MD INDICATIONS: Gastric ulcers. PREOPERATIVE DIAGNOSIS: POSTOPERATIVE DIAGNOSIS: PROCEDURE PERFORMED: Upper endoscopy with biopsy. ESTIMATED BLOOD LOSS: COMPLICATIONS: ANESTHESIA: Medications, monitored anesthesia care. ASSISTANTS: SPECIMENS: DESCRIPTION OF PROCEDURE: A history and physical performed. The risks and benefits of the procedure were explained to the patient. Informed consent was obtained. The patient was placed in left lateral decubitus position. The Olympus video gastroscope was introduced into the esophagus, stomach, and duodenum. Examination was performed. The scope was removed. He tolerated the procedure well and was taken to recovery in stable condition. FINDINGS: 1. Esophagus: The esophagus was normal. There was an irregular EG junction. This was biopsied. 2. Stomach: The stomach was normal. The ulcers were healed. Antral biopsies were obtained. 3. Duodenum: The bulb and 2nd portion were normal. IMPRESSION: Normal upper endoscopy. RECOMMENDATION: Follow up the biopsy results. MD JANES Matos/KRISTINL / [id number]
== END 2024-07-10 09:01 | disposition home or self-care (01) ==
PROVIDERS: PCP Internal Medicine; Visit Provider Internal Medicine Gastroenterology
PROC: 0DJ08ZZ Inspection of Upper Intestinal Tract, Via Natural or Artificial Opening Endoscopic (ICD-10-PCS; CPT 43235; principal; 2024-07-10 07:30)
DX: K22.89 Other specified disease of esophagus (principal); K20.80 Other esophagitis without bleeding; Z87.11 Personal history of peptic ulcer disease; K21.9 Gastro-esophageal reflux disease without esophagitis; I10 Essential (primary) hypertension; E78.5 Hyperlipidemia, unspecified; G40.909 Epilepsy, unspecified, not intractable, without status epilepticus; Z79.899 Other long term (current) drug therapy; Z96.653 Presence of artificial knee joint, bilateral; Z87.891 Personal history of nicotine dependence
CPT/HCPCS: 43239; 88305; 88313; 88342; J2003; J2250; J2704

== ENCOUNTER 2024-08-31 09:28 | Outpatient (AMB) | payer MEDICARE, MEDICAID, SELFPAY ==
--- NOTE | 2024-08-31 08:33 | MHC.PC.OV ---
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 Last seen by pcp in April for annual exam CV: on atorvastatin, fenofibrate, losartan. Labs in April. Would like to try decreasing atorvastatin. IFG: Last A1 5.6%. Rash around the base of the neck chest in hot weather. Has tried topical steroid MSK: history of knee replacement. Still has residual tolerable pain Colonoscopy 02/2023 Dr Rvaindra LEDESMA CONSTITUTIONAL: Denies weight loss, fever and chills. HEENT: Denies changes in vision and hearing. RESPIRATORY: Denies SOB and cough. CV: Denies palpitations and CP GI: Denies abdominal pain, nausea, vomiting and diarrhea. : Denies dysuria and urinary frequency. MSK: Denies new myalgia and joint pain. SKIN: Denies rash and pruritus. NEUROLOGICAL: Denies headache PSYCHIATRIC: Denies recent changes in mood. PHYSICAL EXAM: GENERAL: Alert and oriented x 3. NAD EYES: EOMI. Anicteric. HENT: Moist mucous membranes. No scleral icterus. No cervical lymphadenopathy. LUNGS: Clear to auscultation bilaterally. CARDIOVASCULAR: Regular rate and rhythm. No murmur. No JVD. ABDOMEN: Soft, non-tender +bs EXTREMITIES: No edema. Non-tender. SKIN: No rashes or lesions. Warm. NEUROLOGIC: No focal neurological deficits. CN II-XII grossly intact PSYCHIATRIC: Cooperative. Appropriate mood and affect [facility] Medical History Wears dentures GERD (gastroesophageal reflux disease) Hx of seizure disorder Hypertension High cholesterol Surgical History History of esophagogastroduodenoscopy (EGD) (03/23/23) Status post left knee replacement H/O colonoscopy (03/23/23) Status post right knee replacement Family History Mother No problems noted. Father No problems noted. Social History Household Members: Spouse Housing: Condominium Are you a primary home visit field care manager to a significant other at home: No Do you presently have visiting nurse or other home services: No Patient Tobacco Use Status: Former Tobacco user e-Cigarette/Vaping Use: Former Use Substance Use Type: Marijuana service: No Current occupational status: retired Cognitive needs: No Hearing needs: No Vision needs: No Questionnaire PHQ-9 Over the last 2 weeks, how often have you been bothered by any of the following problems? 1. Little interest or pleasure in doing things: not at all 2. Feeling down, depressed, or hopeless: not at all 3. Trouble falling or staying asleep, or sleeping too much: not at all 4. Feeling tired or having little energy: not at all 5. Poor appetite or overeating: not at all 6. Feeling bad about yourself - or that you are a failure or have let yourself or your family down: not at all 7. Trouble concentrating on things, such as reading the newspaper or watching television: not at all 8. Moving or speaking so slowly that other people could have noticed. Or the opposite - being so fidgety or restless that you have been moving around a lot more than usual: not at all 9. Thoughts that you would be better off or of hurting yourself in some way: not at all Total score: 0 Source: Developed by Drs. Juliocesar Almazan, Jeanne Christopher, Kvng Gómez and colleagues, with an educational marta from [employer]. Thrive Questionnaire Date Thrive assessed: 05/09/25 I am a: Patient Within the past 12 months, did the food you bought not last and you didn't have the money to get more?: Never true Within the past 12 months, did you worry whether your food would run out before you got money to buy more?: Never true Do you have trouble paying for medicines?: No Do you have trouble getting transportation to medical appointments?: No Do you have trouble paying your heating and electricity bill?: No Do you have trouble taking care of your child, family member or friend?: No Do you have trouble with day-to-day activities such as bathing, preparing meals, shopping, managing finances, etc.?: No Are you currently unemployed and looking for a job?: No Are you interested in more education?: No THRIVE Score: 0 AUDIT C Alcohol Use Questionnaire (AUDIT-C) 1. How often do you have a drink containing alcohol?: Monthly or less 2. How many drinks containing alcohol do you have on a typical day when you are drinking?: 1 or 2 3. How often do you have six or more drinks on one occasion?: Less than monthly Total Score: 2 FOREIGN-7 AMB Questionnaire FOREIGN-7 Date FOREIGN - 7 assessed: 08/31/24 Feeling nervous, anxious, or on edge: 0 = Not at all Not being able to stop or control worryin = Not at all Worrying too much about different things: 0 = Not at all Trouble relaxin = Not at all Being so restless that it is hard to sit still: 0 = Not at all Becoming easily annoyed or irritable: 0 = Not at all Feeling afraid as if something awful might happen: 0 = Not at all Total FOREIGN-7 score (0-4 normal; 5-9 mild; 10-14 moderate; 15-21 severe): 0 Source: Developed by Drs. Juliocesar Almazan, Jeanne Christopher, Kvng Gómez and colleagues, with an educational marta from [employer]. Physical exam (Primary Care) Vital Signs: Last Vital Signs Temp 98 F 08/31/24 09:33 Pulse 81 08/31/24 09:33 BP 128/70 08/31/24 09:33 Pulse Ox 98 08/31/24 09:33 Oxygen Delivery Method Room Air 08/31/24 09:33 BMI result Body Mass Index 27.4 Tobacco/Smoking Status: Tobacco use Status Tobacco use date assessed 08/31/24 08/31/24 08:35 Patient Tobacco Use Status Former Tobacco user 08/31/24 09:44 e-Cigarette/Vaping Use Former Use 08/31/24 09:44 PHQ-9: PHQ-9 Score PHQ-9: Total score 0 08/31/24 09:35 Thrive Assessment: Date of Thrive Assessment Date Thrive assessed 08/31/24 08/31/24 08:35 Coding Level of Care Code New Pt Level 4 (57576) Complex EM visit Add On G2211 Diagnoses High cholesterol E78.00 Primary hypertension I10 Hypertension type: primary hypertension Elevated glucose R73.09 Gastroesophageal reflux disease, unspecified whether esophagitis present K21.9 Esophagitis presence: esophagitis presence not specified Assessment & Plan Assessment & Plan (1) High cholesterol: Code(s): E78.00 - Pure hypercholesterolemia, unspecified Category: Medical (2) Hypertension: Code(s): I10 - Essential (primary) hypertension Category: Medical Qualifiers: Hypertension type: primary hypertension Qualified Code(s): I10 - Essential (primary) hypertension (3) Elevated glucose: Code(s): R73.09 - Other abnormal glucose Category: Medical (4) GERD (gastroesophageal reflux disease): Code(s): K21.9 - Gastro-esophageal reflux disease without esophagitis Category: Medical Qualifiers: Esophagitis presence: esophagitis presence not specified Qualified Code(s): K21.9 - Gastro-esophageal reflux disease without esophagitis Plan 64 year old to establish care past medical, surgical social reviewed Chronic medical conditions are stable. Can try decrease lipitor dose Rash-lotrisone ordered Orders: Orders Hemoglobin A1c 4 Months E78.00 - Pure hypercholesterolemia, unspecified, I10 - Essential (primary) hypertension, K21.9 - Gastro-esophageal reflux disease without esophagitis, R73.09 - Other abnormal glucose Lipid Panel 4 Months E78.00 - Pure hypercholesterolemia, unspecified, I10 - Essential (primary) hypertension, K21.9 - Gastro-esophageal reflux disease without esophagitis, R73.09 - Other abnormal glucose Comprehensive Met. Panel 4 Months E78.00 - Pure hypercholesterolemia, unspecified, I10 - Essential (primary) hypertension, K21.9 - Gastro-esophageal reflux disease without esophagitis, R73.09 - Other abnormal glucose Medications: New atorvastatin 40 mg PO DAILY 90 tabs 3RF clotrimazole-betamethasone 1-0.05 % 1 appl topical BID 45 grams 3RF 4 weeks
[2024-08-31 09:33] VITALS: BP 128/70; PULSE 81; TEMP 36.6; O2SAT 98; BMI 27.4
--- OUTSIDE RECORDS SUMMARY | 2024-08-31 09:46 | XMS_ITS | Patient Health Record ---
Author Organization [facility] Address [address] [place] [address] Care Team Providers Care Supervisor [employer] Name Role Phone Obed Hanley MD Primary Care Provider Jama Herrera Jr Allergies No Known Allergies Results Component Value Reference Range Notes Pathology Reviewed date:07/13/2024 02:57:04 PM Interpretation: Performing Lab:[facility], [address] [place] [id number] Notes/Report: Name: Yoana Castaneda ge/Sex: 63/M : 1960 Unit#: [id number] Attend Dr: Jama Waite MD Re07/10/24 Status : [facility] Location: [facility] Disch: SPEC : [id number] RECD : 07/10/24 STATUS: PRICILA WILLIS NUM: [id number] DAVID: 07/10/24 [facility] DR: Jama Waite MD ENTERED: 07/10/24 SP TYPE: Surgical OTHR DR: Obed Hanley MD ORDERED: HE Stain/6, Gross Micro L4/2, IHC, Special st. 2/2, H. pylori, AB/PAS/2 Diagnosis A. Stomach, antrum, biopsy: Antral-type mucosa with mild chronic inactive inflammation and intestinal metap lasia; negative for dysplasia; no Helicobacter organisms seen. B. EG junction, biopsy: - Cardiofundic-type mucosa with moderate chronic, focally active, inflammation; no intestinal metaplasia seen. - Active esophagitis (maximum eosinophil count 7 per high powered field). Clinical History Pre-Op Dx: Acute gas tric ulcer without hemorrhage or perforation Post-Op Dx: Normal EGD Microscopic Description A, B. Microscopic se ctions examined. Intestinal metaplasia is seen in A and no metaplastic changes are seen in B, supported by AB/PAS stains; no Helicobacter organisms are seen, supported by H. pylo ri immunostain (A). Material Received A. Gastric antrum bx's B. EG junction bx's Gross Description Received in two parts. Part A: Received in formalin labeled ?gastric antrum bx's? are 2 lara-pink irregular tissue fragments each measu ring 0.3 cm, submitted in toto in a cassette labeled A. Part B: Received in formalin labeled ?EG junction bx's? are 4 lara-white and lara-pink irregular and rectan gular tissue fragments ranging from 0.2-0.45 cm, submitted in toto in a cassette labeled B. CEDS Special studies orde red and performed: Immunostain for H. pylori on A; AB/PAS stains on A and B CONTINUED ON NEXT PAGE Name: Yoana Castaneda ge/Sex: 63/M : 1960 Unit#: [id number] Attend Dr: Jama Waite MD Re07/10/24 Status : [facility] Location: [facility] Disch: SPEC : [id number] RECD : 07/10/24 STATUS: JBBerkley PANDYADolores NUM: [id number] DAVID: 07/10/24 [facility] DR: Jama Waite MD ENTERED: 07/10/24 SP TYPE: Surgical OTHR DR: Obed Hanley MD ORDERED: HE Stain/6, Gross Micro L4/2, IHC, Special st. 2/2, H. pylori, AB/PAS/2 Copies To: Jama Waite MD [facility] [address] [place] [address] Obed Hanley MD [facility] [address] [place] [address] Drive [address] [place] [address] Signed (si gnature on file) Amol Vides MD 07/12/24 0900 END OF REPORT Reason For Referral No Information Medications Medication SIG (Take, Route, Frequency, Duration) Notes Start Date End Date Status Fenofibrate 160 MG 1 tablet Orally Once a day for 30 day(s) Active Atorvastatin Calcium 80 MG 1 tablet Oral ly Once a day for 30 day(s) Active Omeprazole 20 MG TAKE ONE CAPSULE BY MOUTH EVERY DAY for 30 Active levETIRAcetam 250 MG TAKE ONE TABLET BY MOUTH TWICE A DAY Oral for 30 Active Losartan Potassium-HCTZ 50-12.5 MG 1 tablet Orally Once a day for 30 day(s) Active Immunizations Vaccine Route Administration Date Status Comme nts Influenza Unknown 01/12/2022 Administered Social History Alcohol Screen Question Answer Notes Did you [...] Never (0 point) Points 3 Interpretation Negative Section Notes: will drink a beer couple rosanne es a week Problems Problem Type SNOMED Code ICD Code Onset Dates Problem Status W/U Status Risk Notes Problem 905204163 Colon cancer screening (Z12.11) Active confirmed Problem 47966750 Acute gastric ulcer without hemorrhage or perforation (K25.3) Active confirmed Problem Gastroesophageal reflux disease (230451247) GERD (gastroesophageal reflux disease) (K21.9) Active confirmed Problem 219616254 Gastroesophageal reflux disease, unspecified whether esophagitis present (K21.9) Active confirmed Vital Signs Blood pressure diastolic 00 mm Hg 02/23/2024 Height 68 in 02/23/2024 Blood pressure systolic 00 mm Hg 02/23/2024 Weight 183 lbs 02/23/2024 BMI 27.82 kg/m2 02/23/2024 Encounters Encounter Location Date Provider Diagnosis [facility] Out[place] [address] [place] [phone] 07/10/2024 Jama Waite Jr Gastric ulcer K25.9 [facility] [address] [place] [address] 02/23/2024 Jama Waite Jr Acute gastric ulcer without hemorrhage or perforation K25.3 and Colon cancer screening Z12.11 [facility] [address] [place] [address] 11/10/2023 Jama Waite Jr [facility] [address] [place] [phone] 05/07/2024 Jama Waite Jr [facility] [address] [place] [phone] 07/13/2024 Jama Waite Jr Assessments Encounter Date Diagnosis (ICD Code) Assessment Notes Treatment Notes Treatment Clinical Notes Section Notes 07/10/2024 Gastric ulcer (ICD-10 - K25.9) 02/23/2024 Colon cancer screening (ICD-10 - Z12.11) At this time, he is doing well. He will continue his proton pump inhibitor for good control of his upper GI symptoms. He is due for followup endoscopy because of his gastric ulcers. We discussed risks and benefits of the procedure today. He understands these and agrees to proceed. He is up-to-date on colorectal cancer screening. 02/23/2024 Acute gastric ulcer without hemorrhage or perforation (ICD-10 - K25.3) Endoscopy material was printed At this time, he is doing well. He will continue his proton pump inhibitor for good control of his upper GI symptoms. He is due for followup endoscopy because of his gastric ulcers. We discussed risks and benefits of the procedure today. He understands these and agrees to proceed. He is up-to-date on colorectal cancer screening. Plan Of Treatment Future Test Test Name Order Date COLONOSCOPY 09/15/2012 UPPER GI ENDOSCOPY 01/03/2023 COLONOSCOPY 01/03/2023 UPPER GI ENDOSCOPY 03/01/2024 Next Appt Details Provider Name:Jama toro Jr, 01/10/2025 03:35:00 PM, [address], [address], [place], [address], Insurance Providers Payer Name Payer Address Payer Phone Subscriber Number Group Number Insured Name Patient Relationship to Insured Coverage Start Date Coverage End Date [facility] [address] [address] [place] [address] [phone] [id number] YOANA CASTANEDA Self - patient is the insured MEDICAID OF [facility] [address] [place] [address] [phone] [id number] YOANA CASTANEDA Self - patient is the insured Medical (General) History Medical History History ICD Code Hypertension Hyperlipidemia Colonoscopy 03/17, normal, ten-year foll owup Gastroesophageal reflux dise ase, EGD in 03/17, antral ulcers, high-dose PPI, followup endoscopy TBA Seizure disorder Surgical History Surgery Date(Month/Year) right knee replacement 2007 left knee replacement 2005
--- OUTSIDE RECORDS SUMMARY | 2024-08-31 09:46 | XMS_ITS ---
Author Organization [facility] Address [address] [place] [address] Care Team Providers Care Osteopathic Resident Name Role Phone Obed Hanley MD Primary Care Provider Jama Herrera Jr [phone] REASON FOR VISIT Pathology Encounters Encounter Location Date Provider Diagnosis [facility] [address] [place] [address] 07/13/2024 Jama Waite Jr Plan Of Treatment Next Appt Details Provider Name:Jama toro Jr, 01/10/2025 03:35:00 PM, [address], [address], [place], [address], Progress Notes * MEREDITH CASTANEDAOB:1960 (63 yo M)Acc No.[id number]:07/13/2024 Patient:?LEONEL YOANA :1960???Age:63 Y???Sex:Male Address:[address] [place] [address], [address] * true * Date:? Generated for Printi ng/Fakristyg/eTransmitting on:?08/31/2024 09:46 AM EDT
--- OUTSIDE RECORDS SUMMARY | 2024-08-31 09:46 | XMS_ITS ---
Author Organization [facility] Address [address] [place] [address] Care Team Providers Care Implementation Architect Name Role Phone Obed Hanley MD Primary Care Provider Jama Herrera Jr REASON FOR VISIT gtastric ulcers Encounters Encounter Location Date Provider Diagnosis [facility] Outpatient [address] [place], [place] [phone] 07/10/2024 Jama Waite Jr Gastric ulcer K25.9 Assessments Encounter Date Diagnosis (ICD Code) Assessment Notes Treatment Notes Treatment Clinical Notes Section Notes 07/10/2024 Gastric ulcer (ICD-10 - K25.9) Plan Of Treatment Next Appt Details Provider Name:Jama toro Jr, 01/10/2025 03:35:00 PM, [address], [address] [facility], [place], [address], Progress Notes * LEONEL, MEREDITHOB:1960 (64 yo M)Acc No.[id number]:07/10/2024 EGD/MAC Patient:?YOANA CASTANEDA Provider:?Jama Waite MD :1960???Age:63 Y???Sex:Male Ubaldo e:07/10/2024 Address:[address] [place] [address] Pcp:Obed Hanley MD Subjective: * Chief Complaints: * ???1. Gtastric ulcers. * Medical History:? Objective: * Vitals:? Assessment: * Assessment: 1.?Gastric ulcer - K25.9 (Pr imary)??? Plan: * Treatment: * Procedure Codes:?35613 UPPER GI ENDOSCOPY, BIOPSY * * The named appointment provid er may or may not be the originator of this progress note, and it is not deemed complete until electronically signed by the appointment provider. Sign off status: Pending * Provider:?Jama Waite MD Date:?0 07/10/2024 Generated for Shraddha tolliver/Lemuel/Jessicaitting on:?08/31/2024 09:46 AM EDT
--- OUTSIDE RECORDS SUMMARY | 2024-08-31 09:46 | XMS_ITS ---
Author Organization [facility] Address [address] [place] [address] Care Team Providers Care Transport Medic Name Role Phone Obed Hanley MD Primary Care Provider Jama Herrera Jr [phone] REASON FOR VISIT gtastric ulcers Encounters Encounter Location Date Provider Diagnosis [facility] Outpatient [address] [place], [place] [phone] 05/08/2024 Jama Waite Jr Plan Of Treatment Next Appt Details Provider Name:Jama toro Jr, 01/10/2025 03:35:00 PM, [address], [address], [place], [address], Progress Notes * OSWALDO CASTANEDAKAYLAOB:1960 (64 yo M)Acc No.[id number]:05/08/2024 EGD/MAC Patient:?YOANA CASTANEDA Provider:?Jama Waite MD :1960???Age:63 Y???Sex:Male Ubaldo e:05/08/2024 Address:[address] [place], [place] [phone] Pcp:Obed Hanley MD Subjective: * Chief Complaints: * ???1. Gtastric ulcers. * Medical History:? Objective: * Vitals:? Assessment: Plan: * Treatment: * * The named appointment provid er may or may not be the originator of this progress note, and it is not deemed complete until electronically signed by the appointment provider. Sign off status: Pending * Provider:?Jama Waite MD Date:?0 05/08/2024 Generated for Shraddha tolliver/Lemuel/Jessicaitting on:?08/31/2024 09:46 AM EDT
== END 2024-08-31 10:02 | disposition home or self-care (01) ==
LOC: HO.HMCHD 09:28
PROVIDERS: PCP Internal Medicine; Visit Provider Internal Medicine
DX: E78.00 Pure hypercholesterolemia, unspecified (principal); I10 Essential (primary) hypertension; R73.09 Other abnormal glucose; K21.9 Gastro-esophageal reflux disease without esophagitis

== ENCOUNTER → 2024-08-31 09:28 | Outpatient (BNVA) | payer MEDICARE, MEDICAID, SELFPAY | PROVIDERS: PCP Internal Medicine; Visit Provider Internal Medicine | DX: I10 Essential (primary) hypertension (principal); K21.9 Gastro-esophageal reflux disease without esophagitis; E78.00 Pure hypercholesterolemia, unspecified; R73.09 Other abnormal glucose; Z96.653 Presence of artificial knee joint, bilateral | CPT/HCPCS: 96127; 99202 ==

== ENCOUNTER 2024-09-26 08:34 | Outpatient (REF) | payer MEDICARE, MEDICAID, SELFPAY ==
--- NOTE | ~2024-09-26 | XR_ITS ---
Exam: 3 view bilateral shoulders Technique: AP, scapular Y, axillary, bilateral shoulders Indication: Shoulder pain No available prior FINDINGS: Right shoulder: Mild degenerative osteophyte formation is noted at the AC joint. Glenohumeral joint is intact. Minimal marginal osteophyte is seen in the medial humeral head. AC joint and glenohumeral joints are intact. Left shoulder: AC joint is intact and unremarkable. There is no glenohumeral dislocation. There is minimal medial osteophyte formation on the humeral head. XR/XR Shoulder Klever min 2V Impression: Mild A.C. and glenohumeral joint degenerative change, right shoulder. Mild glenohumeral degenerative change, left shoulder Electronically signed by: Benny Lake MD 09/26/2024 05:28 PM EDT
--- OUTSIDE RECORDS SUMMARY | 2024-09-26 08:44 | XMS_ITS | Patient Health Record ---
Author Organization [facility] Address [address] [place] [address] Care Team Providers Care Education Courses Sales Representative Name Role Phone Obed Hanley MD Primary Care Provider Jama Herrera Jr [phone] Allergies No Known Allergies Results Component Value Reference Range Notes Pathology Reviewed date:07/13/2024 02:57:04 PM Interpretation: Performing Lab:[facility], [address] [place] [phone] Notes/Report: Name: Yoana Castaneda ge/Sex: 63/M : 1960 Unit#: [id number] Attend Dr: Jama Waite MD Re07/10/24 Status : [facility] Location: [facility] Disch: SPEC : [id number] RECD : 07/10/24 STATUS: PRICILA WILLIS NUM: [id number] DAVID: 07/10/[address] [facility] [address]: Jama Waite MD ENTERED: 07/10/24 SP [...] Yoana Castaneda ge/Sex: 63/M : 1960 Unit#: [id number] Attend Dr: Jama Waite MD Re07/10/24 Status : [facility] Location: [facility] Disch: SPEC : [id number] RECD : 07/10/24 STATUS: JBBerkley PANDYADolores NUM: [id number] DAVID: 07/10/[address] [facility] [address]: Jama Waite MD ENTERED: 07/10/24 SP TYPE: Surgical OTHR DR: Obed Hanley MD ORDERED: HE Stain/6, Gross Micro L4/2, IHC, Special st. 2/2, H. pylori, AB/PAS/2 Copies To: Jama Waite MD [facility] [address] [place] [address] Obed Hanley MD [facility] [address] [place] [address] Drive [address] [place] [address] Signed (si gnature on file) Amol Vides [...] Problem Status W/U Status Risk Notes Problem [id number] Colon cancer screening (Z12.11) Active confirmed Problem 33942817 Acute gastric ulcer without hemorrhage or perforation (K25.3) Active confirmed Problem Gastroesophageal reflux disease (781761311) GERD (gastroesophageal reflux disease) (K21.9) Active confirmed Problem 688985692 Gastroesophageal reflux disease, unspecified whether esophagitis present (K21.9) Active confirmed Vital Signs Blood pressure diastolic 00 mm Hg 02/23/2024 Height 68 in 02/23/2024 Blood pressure systolic 00 mm Hg 02/23/2024 Weight 183 lbs 02/23/2024 BMI 27.82 kg/m2 02/23/2024 Encounters Encounter Location Date Provider Diagnosis [facility] Outpatient [address] [place] [id number] 07/10/2024 Jama Waite Jr Gastric ulcer K25.9 [facility] [address] [place] [address] 02/23/2024 Jama Waite Jr Acute gastric ulcer without hemorrhage or perforation K25.3 and Colon cancer screening Z12.11 [facility] [address] [place] [address] 11/10/2023 Jama Waite Jr [facility] [address] [place] [phone] 05/07/2024 Jama Waite Jr [facility] [address] [facility] [place] [phone] 07/13/2024 Jama Waite Jr Assessments Encounter Date [...] Name:Jama toro Jr, 01/10/2025 03:35:00 PM, [address], [address], [place], [address], Insurance Providers Payer Name Payer Address Payer Phone Subscriber Number Group Number Insured Name Patient Relationship to Insured Coverage Start Date Coverage End Date [facility] [address] [address] [place] [address] [phone] [id number] YOANA CASTANEDA Self - patient is the insured MEDICAID OF [facility] [address] [place] [address] [phone] [id number] YOANA CASTANEDA Self - patient is the insured Medical (General) History Medical History History ICD Code Hypertension Hyperlipidemia Colonoscopy 03/17, normal, ten-year foll owup Gastroesophageal reflux dise ase, EGD in 03/17, antral ulcers, high-dose PPI, followup endoscopy TBA Seizure disorder Surgical History Surgery Date(Month/Year) right knee replacement 2007 left knee replacement 2005
== END 2024-09-26 08:35 | disposition home or self-care (01) ==
LOC: HO.HOSX 08:34
PROVIDERS: Visit Provider Physician Assistant
DX: M25.512 Pain in left shoulder (principal); M25.511 Pain in right shoulder; M77.8 Other enthesopathies, not elsewhere classified
CPT/HCPCS: 20610; 73030; 99212; J1010; J2003

== ENCOUNTER 2024-09-26 09:33 | Outpatient (AMB) | payer MEDICARE, MEDICAID, SELFPAY ==
--- NOTE | 2024-09-26 09:49 | MHC.OFFVIS ---
Intake Visit Reasons: Newprob-B/L shoulder pain Intake Note: Ananth is a 64 year old right hand dominant male who presents today for an evaluation of bilateral shoulder pain. Patient reports his pain has been present for 4 months with his right side being the worse. States his pain radiates down his right arm to his hand. He has discomfort with sleeping on his right side. He feels a twinge in his shoulder with lifting his arm up and bringing it back down. No injury. No other treatment. Occasional numbness and tingling in his hand. Allergies No Known Allergies Allergy (Mild, Verified 09/26/24 09:49) NOT APPLICABLE Medication List - Last Reconciled 09/26/24 by Jazzmine Judd PA-C atorvastatin 40 mg PO DAILY clotrimazole-betamethasone 1-0.05 % 1 appl topical BID 4 weeks fenofibrate 160 mg PO DAILY levetiracetam 250 mg PO BID losartan 50 mg PO DAILY omeprazole 20 mg PO DAILY HPI HPI Newprob-B/L shoulder pain: Details: The patient is a 64-year-old male with a primary complaint of bilateral shoulder pain, more severe on the right side, which began approximately four months ago. He reports associated numbness and tingling extending to the fingers of the right hand, with whole hand involvement, and neck pain on the right side. The shoulder pain increases notably when performing specific movements such as reaching overhead or rotating the arm. He describes episodes where the right shoulder locks or catches, particularly during overhead activities, causing sharp pain relieved through specific manipulations. He denies treatement to date. [facility] Medical History Wears dentures GERD (gastroesophageal reflux disease) Hx of seizure disorder Hypertension High cholesterol Surgical History History of esophagogastroduodenoscopy (EGD) (03/23/23) Status post left knee replacement H/O colonoscopy (03/23/23) Status post right knee replacement Family History Mother No problems noted. Father No problems noted. Social History Household Members: [facility] Are you a primary rn primary care to a significant other at home: No Do you presently have visiting nurse or other home services: No Patient Tobacco Use Status: Former Tobacco user e-Cigarette/Vaping Use: Former Use Substance Use Type: Marijuana service: No Current occupational status: retired Cognitive needs: No Hearing needs: No Vision needs: No Review of Systems Const All systems reviewed & are unremarkable except as noted in HPI and below Physical Exam Extrem Other: Bilateral shoulders are normal to inspection. He has full range of motion in all planes. He has significant tenderness over the right shoulder proximal biceps tendon and a positive Valiente. 5/5 rotator cuff strength. Neurovascularly intact. Office Procedures AMB Joint Injection/Aspiration Joint Injection/Aspiration Primary Site: right shoulder Prep: site was prepped using aseptic technique, ethochloride spray was applied and injection warnings given Injected: 80 mg of, DepoMedrol, with 8 mL of, 1% plain lidocaine and in the subcromial space Approach Used: posterolateral Procedure: The patient tolerated the procedure well and there was some relief with the local anesthesia Coding 86141 - Glenohumeral/Tronchanteric Bursa/Intraarticular Procedure code (CPT) selection complete Results Reviewed Results Reviewed: X-rays of both shoulders obtained in the office today show 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 We reviewed the pros and cons of cortisone injection for short-term relief juxtaposed with the longer-term benefits of physical therapy in strengthening the shoulder girdle. Assurances were provided concerning the safety of the potential injection, highlighting its role primarily as an adjunct to an active rehabilitation program. Arrangements were articulated for physical therapy at a convenient location, with the option to reevaluate after some sessions to determine if more invasive measures such as injection were necessary. Right shoulder was injected today which the patient tolerated well. If symptoms persist or worsen he will see me back in 6-8 weeks otherwise follow up as needed. Orders: Orders XR Shoulder Klever min 2V Today M25.519 - Pain in unspecified shoulder PT Evaluation and Treatment Today M77.8 - Other enthesopathies, not elsewhere classified Coding Level of Care Code Est Pt Level 3 (48286) Complex EM visit Add On G2211 Diagnoses Right shoulder tendonitis M77.8 CPT Codes Coding - Joint 7: 10915 - Glenohumeral/Tronchanteric Bursa/Intraarticular ([id number])
== END 2024-09-26 11:08 | disposition home or self-care (01) ==
LOC: HO.HOS 09:34
PROVIDERS: PCP Internal Medicine; Visit Provider Physician Assistant
DX: M77.8 Other enthesopathies, not elsewhere classified (principal)
CPT/HCPCS: 20610; 99213

== ENCOUNTER → 2024-09-26 09:36 | Outpatient (BNV) | payer MEDICARE, MEDICAID, SELFPAY | PROVIDERS: Visit Provider Radiology Diagnostic Radiology | DX: M19.011 Primary osteoarthritis, right shoulder (principal) | CPT/HCPCS: 73030 ==

== ENCOUNTER 2024-10-24 10:52 | Outpatient (AMB) | payer MEDICARE, MEDICAID, SELFPAY ==
--- NOTE | 2024-10-24 10:53 | MHC.PC.OV ---
Vital Signs 10/24/24 10:54 10/24/24 10:56 10/24/24 10:59 Height 5 ft 8 in Weight 80.286 kg BP 128/56 L Blood Pressure Location Rt brachial Position Sitting Respiration 16 Pulse 67 Pulse Source Pulse Oximeter Temp 97.6 F Temp Source Temporal Artery Scan Pulse Oximetry (%) 98 Oxygen Delivery Method Room Air Intake Visit Reasons: Pre-op Cooling System Operator Required: No Accompanied by: Spouse Allergies No Known Allergies Allergy (Mild, Verified 10/24/24 10:53) NOT APPLICABLE Medication List - Last Reconciled 10/24/24 by KIMBERLEY Cerna atorvastatin 40 mg PO DAILY clotrimazole-betamethasone 1-0.05 % 1 appl topical BID 4 weeks fenofibrate 160 mg PO DAILY levetiracetam 250 mg PO BID losartan 50 mg PO DAILY omeprazole 20 mg PO DAILY Tobacco use date assessed: 08/31/24 Dental Screening Dental Screen Date: 08/31/24 HPI HPI Comments History of Present Illness Details 64-year-old male with history of hypertension, hyperlipidemia, GERD, alcohol use disorder with history of alcohol withdrawal seizure presents to the office today for preoperative clearance. He will be undergoing ptosis surgery bilaterally on 11/02 through [facility]. He has undergone anesthesia in the past without any adverse effects or post anesthesia coomplications. He reports only occasional alcohol use- 1-2 alcohol beverages over the weekend. No cigarette smoking. Does smoke marijuana every other day, no other drug use. Hx alcohol withdrawal seizure 4 years ago, no epileptic seizure disorder. Stable on keppra, no longer following with neurology. No history of cardiovascular disease, congestive heart failure, diabetes. Denies any dyspnea on exertion, early fatigability, chest pains. He is able to walk distances as well as up and down stairs without difficulty. ROS: General: No fevers, malaise, unintentional weight loss Cardiovascular: No chest pain, palpitations, or leg edema Respiratory: No shortness of breath, wheezing, cough, dumont MSK: No myalgia, back pain Neuro: No headaches, weakness, paresthesias. No seizures Skin: No rashes or lesions EXAM: Constitutional - Awake and Alert, No apparent distress Eyes - PERRL Cardiovascular - S1S2, RRR, No edema Respiratory - Normal lung expansion, Normal respiratory effort, No respiratory distress, CTA bilaterally Extremities - no calf tenderness bilaterally, no swelling Skin - Warm/Dry Neurological - Alert & oriented x3 Psychological - Appropriate affect [facility] Medical History Wears dentures GERD (gastroesophageal reflux disease) Hx of seizure disorder Hypertension High cholesterol Surgical History History of esophagogastroduodenoscopy (EGD) (03/23/23) Status post left knee replacement H/O colonoscopy (03/23/23) Status post right knee replacement Family History Mother No problems noted. Father No problems noted. Social History Household Members: [facility] Are you a primary director of critical care to a significant other at home: No Do you presently have visiting nurse or other home services: No Patient Tobacco Use Status: Former Tobacco user e-Cigarette/Vaping Use: Former Use Substance Use Type: Marijuana service: No Current occupational status: retired Cognitive needs: No Hearing needs: No Vision needs: No Questionnaire PHQ-9 Over the last 2 weeks, how often have you been bothered by any of the following problems? 1. Little interest or pleasure in doing things: not at all 2. Feeling down, depressed, or hopeless: not at all 3. Trouble falling or staying asleep, or sleeping too much: more than half the days 4. Feeling tired or having little energy: several days 5. Poor appetite or overeating: not at all 6. Feeling bad about yourself - or that you are a failure or have let yourself or your family down: not at all 7. Trouble concentrating on things, such as reading the newspaper or watching television: several days 8. Moving or speaking so slowly that other people could have noticed. Or the opposite - being so fidgety or restless that you have been moving around a lot more than usual: not at all 9. Thoughts that you would be better off or of hurting yourself in some way: not at all Total score: 4 Depression Screening Interpretation: Negative Depression Screening Done: Yes 39157 - PHQ-9 Billing: Yes Source: Developed by Drs. Juliocesar Almazan, Jeanne Christopher, Kvng Gómez and colleagues, with an educational marta from [employer]. Thrive Questionnaire Date Thrive assessed: 10/24/24 I am a: Patient What is your living situation today?: I have a steady place to live Within the past 12 months, did the food you bought not last and you didn't have the money to get more?: Sometimes True Within the past 12 months, did you worry whether your food would run out before you got money to buy more?: Never true Do you have trouble paying for medicines?: Yes Do you have trouble getting transportation to medical appointments?: No Do you have trouble paying your heating and electricity bill?: No Do you have trouble taking care of your child, family member or friend?: No Do you have trouble with day-to-day activities such as bathing, preparing meals, shopping, managing finances, etc.?: No Are you currently unemployed and looking for a job?: No Are you interested in more education?: No THRIVE Score: 1 FOREIGN-7 AMB Questionnaire FOREIGN-7 Date FOREIGN - 7 assessed: 10/24/24 Feeling nervous, anxious, or on edge: 0 = Not at all Not being able to stop or control worryin = Not at all Worrying too much about different things: 1 = Several days Trouble relaxin = Not at all Being so restless that it is hard to sit still: 0 = Not at all Becoming easily annoyed or irritable: 0 = Not at all Feeling afraid as if something awful might happen: 0 = Not at all Total FOREIGN-7 score (0-4 normal; 5-9 mild; 10-14 moderate; 15-21 severe): 1 Source: Developed by Drs. Juliocesar Almazan, Jeanne Christopher, Kvng Gómez and colleagues, with an educational marta from [employer]. FOREIGN-7 Assessment Billing FOREIGN-7 Assessment Tool: FOREIGN-7 Assessment 62419 Physical exam (Primary Care) Vital Signs: Last Vital Signs Temp 97.6 F 10/24/24 10:59 Pulse 67 10/24/24 10:59 Resp 16 10/24/24 10:59 BP 128/56 L 10/24/24 10:59 Pulse Ox 98 10/24/24 10:59 Oxygen Delivery Method Room Air 10/24/24 10:59 Tobacco/Smoking Status: Tobacco use Status Tobacco use date assessed 08/31/24 10/24/24 11:01 Patient Tobacco Use Status Former Tobacco user 10/24/24 11:01 e-Cigarette/Vaping Use Former Use 10/24/24 11:01 PHQ-9: PHQ-9 Score PHQ-9: Total score 4 10/24/24 11:06 Depression Screening Interpretation: Negative Thrive Assessment: Date of Thrive Assessment Date Thrive assessed 10/24/24 10/24/24 11:05 Coding Level of Care Code Est Pt Level 4 (72597) Diagnoses Pre-operative cardiovascular examination Z01.810 History of seizure due to alcohol withdrawal Z87.898; Z86.59 Primary hypertension I10 Hypertension type: primary hypertension High cholesterol E78.00 Additional Codes PHQ-9 - 63750 - PHQ-9 Billing: Yes ([id number]) FOREIGN-7 Assessment Billing - FOREIGN-7 Assessment Tool: FOREIGN-7 Assessment 20777 ([id number]) Assessment & Plan Assessment & Plan (1) Pre-operative cardiovascular examination: Code(s): Z01.810 - Encounter for preprocedural cardiovascular examination Plan: EKG reassuring- NSR, rate 59, no st/t wave abnormalities, no ischemic changes RCRI score 0. At time of exam no medical contraindication that should preclude patient from undergoing procedure Advised to hold losartan on day of surgery, may resume following day. Not on blood thinners (2) History of seizure due to alcohol withdrawal: Code(s): Z87.898 - Personal history of other specified conditions; Z86.59 - Personal history of other mental and behavioral disorders Category: Medical Plan: Stable. No recurrence of seizures. Continue keppra (3) Hypertension: Code(s): I10 - Essential (primary) hypertension Category: Medical Qualifiers: Hypertension type: primary hypertension Qualified Code(s): I10 - Essential (primary) hypertension Plan: Stable. Continue losartan except day of surgery. Low sodium diet (4) High cholesterol: Code(s): E78.00 - Pure hypercholesterolemia, unspecified Category: Medical Plan: Continue atorvastatin. Diet low in saturated fats and highly processed foods Plan Proceed with ptosis surgery as scheduled. Follow up in the office as scheduled. Labs and EKG reviewed Orders: Orders AMB EKG-In Office Today Z01.810 - Encounter for preprocedural cardiovascular examination
[2024-10-24 10:59] VITALS: BP 128/56; PULSE 67; RESP 16; TEMP 36.4; O2SAT 98
--- OUTSIDE RECORDS SUMMARY | 2024-10-24 11:34 | XMS_ITS | Patient Health Record ---
Author Organization [facility] Address [address] [place] [address] Care Team Providers Care Post Doctoral Researcher Name Role Phone Obed Hanley MD Primary Care Provider Jama Herrera Jr Unavailable Allergies No Known Allergies Results Component Value Reference Range Notes Pathology Reviewed date:07/13/2024 02:57:04 PM Interpretation: Performing Lab:[facility], [address] [place] [phone] Notes/Report: Reason For Referral No Information Medications Medication [...] Problem Status W/U Status Risk Notes Problem 565787925 Colon cancer screening (Z12.11) Active confirmed Problem 39920663 Acute gastric ulcer without hemorrhage or perforation (K25.3) Active confirmed Problem Gastroesophageal reflux disease (177704438) GERD (gastroesophageal reflux disease) (K21.9) Active confirmed Problem 588943799 Gastroesophageal reflux disease, unspecified whether esophagitis present (K21.9) Active confirmed Vital Signs Blood pressure diastolic 00 mm Hg 02/23/2024 Height 68 in 02/23/2024 Blood pressure systolic 00 mm Hg 02/23/2024 Weight 183 lbs 02/23/2024 BMI 27.82 kg/m2 02/23/2024 Encounters Encounter Location Date Provider Diagnosis [facility] Outpatient [address] [place] [id number] 07/10/2024 Jama Waite Jr Gastric ulcer K25.9 [facility] [address] [place] [phone] 02/23/2024 Jama Waite Jr Acute gastric ulcer without hemorrhage or perforation K25.3 and Colon cancer screening Z12.11 [facility] [address] [place] [phone] 11/10/2023 Jama Waite Jr [facility] [address] [place] [phone] 05/07/2024 Jama Waite Jr [facility] [address] [place] [phone] 07/13/2024 Jama Waite Jr Assessments Encounter Date [...] GI ENDOSCOPY 03/01/2024 Next Appt Details Provider Name:Jamamaykel toro Jr, 12/12/2024 10:00:00 AM, [address] [place] [address], [address], [place], [phone], Insurance Providers Payer Name Payer Address Payer Phone Subscriber Number Group Number Insured Name Patient Relationship to Insured Coverage Start Date Coverage End Date [facility] [address] [address] [place] [id number] YOANA CASTANEDA Self - patient is the insured MEDICAID OF [facility] [address] [place] [address] [id number] YOANA CASTANEDA Self - patient is the insured Medical (General) History Medical History History ICD Code Hypertension Hyperlipidemia Colonoscopy 03/17, normal, ten-year foll owup Gastroesophageal reflux dise ase, EGD in 03/17, antral ulcers, high-dose PPI, followup endoscopy TBA Seizure disorder Surgical History Surgery Date(Month/Year) right knee replacement 2007 left knee replacement 2005
== END 2024-10-24 11:38 | disposition home or self-care (01) ==
PROVIDERS: PCP Physician Assistant; Visit Provider Physician Assistant
DX: Z01.810 Encounter for preprocedural cardiovascular examination (principal); Z87.898 Personal history of other specified conditions; Z86.59 Personal history of other mental and behavioral disorders; I10 Essential (primary) hypertension; E78.00 Pure hypercholesterolemia, unspecified

== ENCOUNTER → 2024-10-24 10:52 | Outpatient (BNVA) | payer MEDICARE, MEDICAID, SELFPAY | PROVIDERS: PCP Physician Assistant; Visit Provider Physician Assistant | DX: Z01.810 Encounter for preprocedural cardiovascular examination (principal); I10 Essential (primary) hypertension; E78.00 Pure hypercholesterolemia, unspecified; Z86.59 Personal history of other mental and behavioral disorders; Z87.898 Personal history of other specified conditions; Z79.899 Other long term (current) drug therapy; Z13.31 Encounter for screening for depression; Z13.30 Encounter for screening examination for mental health and behavioral disorders, unspecified | CPT/HCPCS: 96127; 99212 ==

== ENCOUNTER 2025-02-22 08:59 | Outpatient (AMB) | payer MEDICARE, MEDICAID, SELFPAY ==
--- NOTE | 2025-02-22 07:30 | A.OFFPC_ITS ---
Vital Signs 02/22/25 09:08 02/22/25 09:29 Height 5 ft 9.09 in Weight 80.286 kg BMI 26.1 BP 148/72 H 130/76 Blood Pressure Location Lt brachial Position Sitting Respiration 18 Pulse 70 Pulse Source Pulse Oximeter Temp 97.8 F Temp Source Temporal Artery Scan Pulse Oximetry (%) 94 Oxygen Delivery Method Room Air Intake Visit Reasons: 5 Month F/U Glass Embosser Required: No Accompanied by: Spouse Allergies No Known Allergies Allergy (Mild, Verified 02/22/25 07:30) NOT APPLICABLE Tobacco use date assessed: 08/31/24 Dental Screening Dental Screen Date: 08/31/24 HPI HPI Comments History of Present Illness Details 64-year-old male with history of hyperte nsion, hyperlipidemia, GERD, alcohol use disorder with history of alcohol withdrawal seizure presents to the office today for management of chronic conditions. He will be undergoing ptosis surgery bilaterally on 11/02 through [facility]. He has undergone anesthesia in the past without any adverse effects or post anesthesia coomplications. He reports only occasional alcohol use- 1-2 alcohol beverages over the weekend. No cigarette smoking. Does smoke marijuana every other day, no other drug use. Hx alcohol withdrawal seizure 4 years ago, no epileptic seizure disorder. Stable on keppra, no longer following with neurology. No history of cardiovascular disease, congestive heart failure, diabetes. Denies any dyspnea on exertion, early fatigability, chest pains. He is able to walk distances as well as up and down stairs without difficulty. HTN- initial blood pressure 148/72, recheck 130/76. Compliant with losartan 50 mg daily HLD- on atorvastatin 40mg and fenofibrate 160mg daily. Due for lipid panel AUD- only 1 beer on weekends. Hx alcohol w/d seizure- stable on keppra. Not seeing a neurologist GERD- stable on omeprazole 40mg daily Concerns: Leg cramping- started prior to statin initiation. Primarily ankle and foot, but does feel throughout the right lower extremity. Was on gabapentin didnt help. Legs weak. Low back pain, left side. Losing balance, fell last week after tripping. Worse when walking. Describes cramping/pain. No paresthesias Health maintenance: Last colonoscopy 02/2023 with 10 year follow-up advised. Dr. Waite ROS: see hpi EXAM: Constitutional - Awake and Alert, No apparent distress Eyes - PERRL Cardiovascular - S1S2, RRR, No edema Respiratory - Normal lung expansion, Normal respiratory effort, No respiratory distress, CTA bilaterally Extremities - no calf tenderness bilaterally, no swelling MSK-no midline tenderness to palpation, bilateral paraspinal tenderness to palpation at the level of L5-S1. Negative straight leg raises. Full flexion and extension Skin - Warm/Dry Neurological - Alert & oriented x3. 5/5 strength ble, 1+ patellar reflexes bilaterally Psychological - Appropriate affect [facility] Medical History Wears dentures GERD (gastroesophageal reflux disease) Hx of seizure disorder Hypertension High cholesterol Surgical History History of esophagogastroduodenoscopy (EGD) (03/23/23) Status post left knee replacement H/O colonoscopy (03/23/23) Status post right knee replacement Family History Mother No problems noted. Father No problems noted. Social History Household Members: [facility] Are you a primary nurse behavioral health care to a significant other at home: No Do you presently have visiting nurse or other home services: No Patient Tobacco Use Status: Former Tobacco user e-Cigarette/Vaping Use: Former Use Substance Use Type: Marijuana service: No Current occupational status: retired Cognitive needs: No Hearing needs: No Vision needs: No Questionnaire Thrive Questionnaire Date Thrive assessed: 10/24/24 FOREIGN-7 AMB Questionnaire FOREIGN-7 Date FOREIGN - 7 assessed: 10/24/24 Source: Developed by Drs. Juliocesar Almazan, Jeanne Christopher, Kvng Gómez and colleagues, with an educational marta from [employer]. Physical exam (Primary Care) Vital Signs: Last Vital Signs Temp 97.8 F 02/22/25 09:08 Pulse 70 02/22/25 09:08 Resp 18 02/22/25 09:08 BP 130/76 02/22/25 09:29 Pulse Ox 94 02/22/25 09:08 Oxygen Delivery Method Room Air 02/22/25 09:08 BMI result Body Mass Index 26.1 Tobacco/Smoking Status: Tobacco use Status Tobacco use date assessed 08/31/24 02/22/25 07:31 Patient Tobacco Use Status Former Tobacco user 02/22/25 07:31 e-Cigarette/Vaping Use Former Use 02/22/25 07:31 Thrive Assessment: Date of Thrive Assessment Date Thrive assessed 10/24/24 02/22/25 07:31 Coding Level of Care Code Est Pt Level 4 (08419) Complex EM visit Add On G2211 Diagnoses Primary hypertension I10 Hypertension type: primary hypertension High cholesterol E78.00 Alcohol use disorder in remission F10.91 Leg cramping R25.2 Assessment & Plan Assessment & Plan (1) Hypertension: Code(s): I10 - Essential (primary) hypertension Category: Medical Qualifiers: Hypertension type: primary hypertension Qualified Code(s): I10 - Essential (primary) hypertension Plan: Controlled. Continue losartan 50 mg daily. Low-sodium diet. Evaluate renal function electrolyte levels (2) High cholesterol: Code(s): E78.00 - Pure hypercholesterolemia, unspecified Category: Medical Plan: Lipid panel ordered. Continue atorvastatin 40 mg daily. Leg cramping unlikely to be related to statin use given unilateral distribution and in started prior to initiation (3) Alcohol use disorder in remission: Code(s): F10.91 - Alcohol use, unspecified, in remission Category: Medical Plan: Can continue with 1 beer over the weekend, no excessive consumption. Continue on Keppra as ordered given history of alcohol withdrawal seizure (4) Leg cramping: Code(s): R25.2 - Cramp and spasm Category: Medical Plan: Check electrolyte levels including potassium and magnesium. Suspect this is actually related to lumbar radiculopathy. He is referred to physical therapy. Consider MRI if no improvements with physical therapy Plan Follow-up in the office in 6 months. Labs today Orders: Orders Basic Metabolic Panel Today E78.00 - Pure hypercholesterolemia, unspecified, I10 - Essential (primary) hypertension, R25.2 - Cramp and spasm Lipid Panel Today E78.00 - Pure hypercholesterolemia, unspecified, I10 - Essential (primary) hypertension, R25.2 - Cramp and spasm Liver Panel Today E78.00 - Pure hypercholesterolemia, unspecified, I10 - Essential (primary) hypertension, R25.2 - Cramp and spasm Prostate Specific Antigen Today E78.00 - Pure hypercholesterolemia, unspecified, I10 - Essential (primary) hypertension, R25.2 - Cramp and spasm Vitamin B12 Today E78.00 - Pure hypercholesterolemia, unspecified, I10 - Essential (primary) hypertension, R25.2 - Cramp and spasm Magnesium Today R25.2 - Cramp and spasm PT Evaluation and Treatment Today M54.16 - Radiculopathy, lumbar region, R25.2 - Cramp and spasm
[2025-02-22 09:08] VITALS: BP 148/72; PULSE 70; RESP 18; TEMP 36.6; O2SAT 94; BMI 26.1
[2025-02-22 09:29] VITALS: BP 130/76
== END 2025-02-22 09:51 | disposition home or self-care (01) ==
PROVIDERS: PCP Physician Assistant; Visit Provider Physician Assistant
DX: I10 Essential (primary) hypertension (principal); E78.00 Pure hypercholesterolemia, unspecified; F10.91 Alcohol use, unspecified, in remission; R25.2 Cramp and spasm

== ENCOUNTER → 2025-02-22 08:59 | Outpatient (BNVA) | payer MEDICARE, MEDICAID, SELFPAY | PROVIDERS: PCP Internal Medicine; Visit Provider Physician Assistant | DX: I10 Essential (primary) hypertension (principal); E78.00 Pure hypercholesterolemia, unspecified; R25.2 Cramp and spasm; K21.9 Gastro-esophageal reflux disease without esophagitis; F10.91 Alcohol use, unspecified, in remission; Z79.899 Other long term (current) drug therapy | CPT/HCPCS: 99212 ==

== ENCOUNTER 2025-02-25 06:33 | Outpatient (REF) | payer MEDICARE, MEDICAID, SELFPAY ==
--- OUTSIDE RECORDS SUMMARY | 2023-11-14 06:00 | XMS_ITS ---
Author Organization [facility] Address [address] [place] [phone] Care Team Providers Care Logging Tractor Operator Name Role Phone Hortensia Pretty M.D. Primary Care Provider Unavail vincent Waite Jr, Jama Unavailable REASON FOR VISIT Patient presents today for gerd Encounters Encounter Location Date Provider Diagnosis [facility] [address] [place] [phone] 11/14/2023 Jama Waite Jr Plan Of Treatment Next Appt Details Provider Name:Jama toro Jr, 03/15/2025 09:50:00 AM, [address] [place] [address], [phone], Progress Notes * OSWALDO CASTANEDAKAYLAOB:1960 (64 yo M)Acc No.[id number]:11/14/2023 Progress Notes Patient: YOANA WAGNER Provider: Gale Waite MD :1960 A ge:63 Y S ex:Male Date:11/14/2023 Address:[address] [place], [place] [id number] Pcp:Hortensia Pretty M.D. Subjective: * Chief Complaints: * 1 . Patient presents today for gerd. * Medical History: Objective: * Vitals: Assessment: Plan: * Treatment: * * The named appointment provid er may or may not be the originator of this progress note, and it is not deemed complete until electronically signed by the appointment provider. Sign off status: Pending * Provider: Gale Waite MD Date: 0 11/14/2023 Generated for Shraddha tolliver/Lemuel/Yamilet on: 1 04/27/2024 06:36 AM EST
--- OUTSIDE RECORDS SUMMARY | 2024-05-08 03:20 | XMS_ITS ---
Author Organization [facility] Address [address] [place] [address] Care Team Providers Care Round Up Ring Hand Name Role Phone Hortensia Pretty M.D. Primary Care Provider Unavail vincent Waite Jr, Jama Unavailable REASON FOR VISIT gtastric ulcers Encounters Encounter Location Date Provider Diagnosis [facility] Outpatient [address] [place] [phone] 05/08/2024 Jama Waite Jr Plan Of Treatment Next Appt Details Provider Name:Jama toro Jr, 03/15/2025 09:50:00 AM, [address] [place] [address], [phone], Progress Notes * OSWALDO CASTANEDAKAYLAOB:1960 (64 yo M)Acc No.[id number]:05/08/2024 EGD/MAC Patient: YOANA WAGNER Provider: Gale Waite MD :1960 A ge:63 Y S ex:Male Date:05/08/2024 Address:[address] [place], [place] [phone] Pcp:Hortensia Pretty M.D. Subjective: * Chief Complaints: * 1 . Gtastric ulcers. * Medical History: Objective: * Vitals: Assessment: Plan: * Treatment: * * The named appointment provid er may or may not be the originator of this progress note, and it is not deemed complete until electronically signed by the appointment provider. Sign off status: Pending * Provider: Gale Waite MD Date: 0 05/08/2024 Generated for Shraddha tolliver/Lemuel/Yamilet on: 1 04/27/2024 06:35 AM EST
--- OUTSIDE RECORDS SUMMARY | 2024-07-10 02:30 | XMS_ITS ---
Author Organization [facility] Address [address] [place] [address] Care Team Providers Care Manager Service Desk Name Role Phone Sukhwinder Camilo, Hortensia Primary Care Provider Jama Dowling Jr Unavailable [phone] REASON FOR VISIT gtastric ulcers Encounters Encounter Location Date Provider Diagnosis [facility] [place] [address] [place] [phone] 07/10/2024 Jama Waite Jr Gastric ulcer K25.9 Assessments Encounter Date Diagnosis (ICD Code) Assessment Notes Treatment Notes Treatment Clinical Notes Section Notes 07/10/2024 Gastric ulcer (ICD-10 - K25.9) Plan Of Treatment Next Appt Details Provider Name:Jama toro Jr, 03/15/2025 09:50:00 AM, [address] [place] [address], [phone], Progress Notes * LEONEL MEREDITHOB:1960 (64 yo M)Acc No.[id number]:07/10/2024 EGD/MAC Patient: YOANA WAGNER Provider: Gale Waite MD :1960 A ge:63 Y S ex:Male Date:07/10/2024 Address:[address] [place] [address] Pcp:Hortensia Pretty M.D. Subjective: * Chief Complaints: * 1 . Gtastric ulcers. * Medical History: Objective: * Vitals: Assessment: * Assessment: 1. G astric ulcer - K25.9 (Primary) Plan: * Treatment: * Procedure Codes: 4 3239 UPPER GI ENDOSCOPY, BIOPSY * * The named appointment provid er may or may not be the originator of this progress note, and it is not deemed complete until electronically signed by the appointment provider. Sign off status: Pending * Provider: Gale Waite MD Date: 0 07/10/2024 Generated for Shraddha tolliver/Lemuel/Jessicaitting on: 04/27/2024 06:36 AM EST
--- OUTSIDE RECORDS SUMMARY | 2025-01-10 10:35 | XMS_ITS ---
Author Organization [facility] Address [address] [place] [phone] Care Team Providers Care Spare Hand Name Role Phone Hortensia Pretty M.D. Primary Care Provider Unavail vincent Waite Jr, Jama Unavailable REASON FOR VISIT inflammation in stomach Encounters Encounter Location Date Provider Diagnosis [facility] [address] [facility] [address] [place] [phone] 01/10/2025 Jama Waite Jr Plan Of Treatment Next Appt Details Provider Name:Jama toro Jr, 03/15/2025 09:50:00 AM, [address] [place] [address], [phone], Progress Notes * MEREDITH CASTANEDAOB:1960 (64 yo M)Acc No.[id number]:01/10/2025 Progress Notes Patient: YOANA WAGNER Provider: Gale Waite MD :1960 A ge:64 Y S ex:Male Date:01/10/2025 Address:[address] [place], [place] [phone] Pcp:Hortensia Pretty M.D. Subjective: * Chief Complaints: * 1 . Inflammation in stomach. * Medical History: Objective: * Vitals: Assessment: Plan: * Treatment: * * The named appointment provid er may or may not be the originator of this progress note, and it is not deemed complete until electronically signed by the appointment provider. Sign off status: Pending * Provider: Gale Waite MD Date: 0 01/10/2025 Generated for Shraddha tolliver/Lemuel/Jessicaitting on: 1 04/27/2024 06:36 AM EST
--- OUTSIDE RECORDS SUMMARY | 2025-02-25 06:35 | XMS_ITS ---
Author Organization Unknown ENCOUNTERS Encounter Performer Location Date Diagnosis Diagnosis [place] [address] [id number] [place] [address] [id number] [facility] Pre Admit [address] [phone] [place] [address] [id number] [facility] *Note: Encounters from your own facility or health system may be excluded. Allergies, Adverse Reactions, Alerts Allergen Type Severity Identification Date Medications Name Date Quantity Days Supplied GPI Number
--- OUTSIDE RECORDS SUMMARY | 2025-02-25 06:35 | XMS_ITS | Patient Health Record ---
Author Organization [facility] Address [address] [place] [address] Care Team Providers Care Lending Consultant Name Role Phone Hortensia Pretty M.D. Primary Care Provider Jama Dowling Jr Unavailable [phone] Allergies No Known Allergies Results Component Value Reference Range Notes Pathology Reviewed date:07/13/2024 02:57:04 PM Interpretation: Performing Lab:[facility], [address] [place] [phone] Notes/Report: Reason For Referral No Information Medications [...] Status Risk Notes Problem Colon cancer screening (047895797) Colon cancer screening (Z12.11) Active confirmed Problem Acute gastric ulcer without hemorrhage, without perforation AND without obstruction (25728664) Acute gastric ulcer without hemorrhage or perforation (K25.3) Active confirmed Problem Gastroesophageal reflux disease (330730831) GERD (gastroesophageal reflux disease) (K21.9) Active confirmed Problem Gastroesophageal reflux disease (144592701) Gastroesophageal reflux disease, unspecified whether esophagitis present (K21.9) Active confirmed Vital Signs Heart Rate 72 /min 12/12/2024 Temperature 98.0 degrees Fahrenheit 12/12/2024 Blood pressure diastolic 01 mm Hg 12/12/2024 Height 68 in 12/12/2024 Blood pressure systolic 001 mm Hg 12/12/2024 Weight 176.6 lbs 12/12/2024 BMI 26.85 kg/m2 12/12/2024 Encounters Encounter Location Date Provider Diagnosis [facility] Outpatient [address] [place] [id number] 07/10/2024 Jama Waite Jr Gastric ulcer K25.9 [facility] [address] [place] [phone] 12/12/2024 Jama Waite Jr Gastric intestinal metaplasia K31.A0 and GERD (gastroesophageal reflux disease) K21.9 [facility] [address] [place] [phone] 05/07/2024 Jama Waite Jr [facility] [address] [place] [phone] 07/13/2024 Jama Waite Jr Assessments Encounter Date Diagnosis (ICD Code) Assessment Notes Treatment Notes Treatment Clinical Notes Section Notes 07/10/2024 Gastric ulcer (ICD-10 - K25.9) 12/12/2024 Gastric intestinal metaplasia (ICD-10 - K31.A0) [...] Today's visit was 30 minutes. 12/12/2024 GERD (gastroesophag eal reflux disease) (ICD-10 - K21.9) We discussed [...] Name:Jama toro Jr, 03/15/2025 09:50:00 AM, [address] [place] [address], [phone], Insurance Providers Payer Name Payer Address Payer Phone Subscriber Number Group Number Insured Name Patient Relationship to Insured Coverage Start Date Coverage End Date [facility] [address] [address] [place] [id number] YOANA CASTANEDA Self - patient is the insured MEDICAID OF [facility] [address] [place] [address] [id number] YOANA CASTANEDA Self - patient is the [...]
[2025-02-25 07:38] LABS: Alanine Aminotransferase 32 U/L (0-40); Albumin Level 5.1 g/dL (3.5-5.0); Alkaline Phosphatase 54 U/L (39-117); Anion Gap 11 (12-20); Aspartate Amino Transferase 28 U/L (5-37); Blood Urea Nitrogen 18 mg/dL (9-16); Calcium 9.6 mg/dL (8.4-10.2); Carbon Dioxide 30 mmol/L (22-29); Chloride 104 mmol/L (96-108); Cholesterol 159 mg/dL (<200); Estimated Glomerular Filt Rate > 60; HDL Cholesterol 37 mg/dL (>40); Magnesium 2.0 mg/dL (1.6-2.6); Potassium 3.8 mmol/L (3.3-5.1); Sodium 141 mmol/L (135-145); Total Protein 7.4 g/dL (6.5-8.0); Triglycerides 145 mg/dL (<150)
[2025-02-25 08:06] LABS: Prostate Specific Antigen 0.87 ng/mL (<0.05-4.0); Vitamin B12 402 pg/mL (200-900)
== END 2025-02-25 06:34 | disposition home or self-care (01) ==
LOC: HO.LAB 06:33
PROVIDERS: PCP Physician Assistant; Visit Provider Physician Assistant
DX: I10 Essential (primary) hypertension (principal); E78.00 Pure hypercholesterolemia, unspecified; R25.2 Cramp and spasm; Z12.5 Encounter for screening for malignant neoplasm of prostate
CPT/HCPCS: 36415; 80048; 80061; 80076; 82607; 83735; 84153

== ENCOUNTER 2025-03-15 08:23 | Day surgery (SDC) | payer MEDICARE, MEDICAID, SELFPAY ==
--- OUTSIDE RECORDS SUMMARY | 2023-11-14 07:00 | XMS_ITS ---
Author Organization [facility] Address [address] [place] [phone] Care Team Providers Care Supervisor Electronics Processing Name Role Phone Hortensia Pretty M.D. Primary Care Provider Unavail vincent Waite Jr, Jama Unavailable [phone] REASON FOR VISIT Patient presents today for gerd Encounters Encounter Location Date Provider Diagnosis [facility] [address] [facility] [address] [place] [phone] 11/14/2023 Jama Waite Jr Plan Of Treatment Next Appt Details Provider Name:Jama toro Jr, 03/15/2025 09:50:00 AM, [address] [place] [address], [phone], Progress Notes * OSWALDO CASTANEDAKAYLAOB:1960 (64 yo M)Acc No.[id number]:11/14/2023 Progress Notes Patient: YOANA WAGNER Provider: Gale Waite MD :1960 A ge:63 Y S ex:Male Date:11/14/2023 Address:[address] [place], [place] [phone] Pcp:Hortensia Pretty M.D. Subjective: * Chief Complaints: [...] 11/14/2023 Generated for Shraddha tolliver/Lemuel/Yamilet on: 1 02:34 PM EDT
--- OUTSIDE RECORDS SUMMARY | 2024-05-08 04:20 | XMS_ITS ---
Author Organization [facility] Address [address] [place] [address] Care Team Providers Care Slip Tender Name Role Phone Hortensia Pretty M.D. Primary Care Provider Unavail vincent Waite Jr, Jama Unavailable [phone] REASON FOR VISIT gtastric ulcers Encounters Encounter Location Date Provider Diagnosis [facility] [place] [address] [place] [phone] 05/08/2024 Jama Waite Jr Plan Of Treatment Next Appt Details Provider Name:Jama toro Jr, 03/15/2025 09:50:00 AM, [address] [place] [address], [phone], Progress Notes * OSWALDO CASTANEDAKAYLAOB:1960 (64 yo M)Acc No.[id number]:05/08/2024 EGD/MAC Patient: YOANA WAGNER Provider: Gale Waite MD :1960 A ge:63 Y S ex:Male Date:05/08/2024 Address:[address] [place], [place] [phone] Pcp:Hortensia Pretty M.D. Subjective: * Chief Complaints: [...] 05/08/2024 Generated for Shraddha tolliver/Lemuel/Yamilet on: 1 02:34 PM EDT
--- OUTSIDE RECORDS SUMMARY | 2024-07-10 03:30 | XMS_ITS ---
Author Organization [facility] Address [address] [place] [address] Care Team Providers Care Steam Power Plant Operator Name Role Phone Sukhwinder Camilo, Hortensia Primary Care Provider Jama Dowling Jr Unavailable REASON FOR VISIT gtastric ulcers Encounters Encounter Location Date Provider Diagnosis [facility] Out[place] [address] [place] [phone] 07/10/2024 Jama Waite Jr Gastric ulcer K25.9 Assessments Encounter Date Diagnosis (ICD Code) Assessment Notes Treatment Notes Treatment Clinical Notes Section Notes 07/10/2024 Gastric ulcer (ICD-10 - K25.9) Plan Of Treatment Next Appt Details Provider Name:Jama toro Jr, 03/15/2025 09:50:00 AM, [address] [place] [address], [phone], Progress Notes * LEONEL MEREDITHOB:1960 (64 yo M)Acc No.[id number]:07/10/2024 EGD/MAC Patient: YOANA WAGNER Provider: Gale Waite MD :1960 A ge:63 Y S ex:Male Date:07/10/2024 Address:[address] [place] [address] Pcp:Hortensia Pretty M.D. Subjective: * Chief Complaints: [...] 0 07/10/2024 Generated for Shraddha tolliver/Lemuel/Jessicaitting on: 02:34 PM EDT
--- OUTSIDE RECORDS SUMMARY | 2025-01-10 11:35 | XMS_ITS ---
Author Organization [facility] Address [address] [place] [phone] Care Team Providers Care Rope Silica Machine Operator Name Role Phone Hortensia Pretty M.D. Primary Care Provider Unavail vincent Waite Jr, Jama Unavailable REASON FOR VISIT inflammation in stomach Encounters Encounter Location Date Provider Diagnosis [facility] [address] [facility] [address] [place] [phone] 01/10/2025 Jama Waite Jr Plan Of Treatment Next Appt Details Provider Name:Jama toro Jr, 03/15/2025 09:50:00 AM, [address] [place] [address], [phone], Progress Notes * MEREDITH CASTANEDAOB:1960 (64 yo M)Acc No.[id number]:01/10/2025 Progress Notes Patient: YOANA WAGNER Provider: Gale Waite MD :1960 A ge:64 Y S ex:Male Date:01/10/2025 Address:[address] [place], [place] [phone] Pcp:Hortensia Pretty M.D. Subjective: * Chief Complaints: [...] 01/10/2025 Generated for Shraddha tolliver/Lemuel/Jessicaitting on: 1 02:34 PM EDT
--- OUTSIDE RECORDS SUMMARY | 2025-02-15 14:34 | XMS_ITS | Patient Health Record ---
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 Primary Care Provider Jama Dowling Jr Unavailable [phone] Allergies No Known Allergies Results Component Value Reference Range Notes Pathology Reviewed date:07/13/2024 02:57:04 PM Interpretation: Performing Lab:[facility], [address] [place] [id number] Notes/Report: Reason For Referral No Information Medications Medication SIG (Take, Route, Frequency, Duration) Notes Start Date End Date Status Atorvastatin Calcium 40 MG 1 tablet Oral ly Once a day; Duration: 30 days Active Fenofibrate 160 MG 1 tablet Orally Once a day; Duration: 30 day(s) Active Omeprazole 20 MG TAKE ONE CAPSULE BY MOUTH EVERY DAY; Duration: 30 Active Omeprazole 40 MG 1 capsule 1/2 to 1 h our before morning meal Orally Once a day; Duration: 30 days 12/12/2024 Active Losartan Potassium-HCTZ 50-12.5 MG 1 tablet Orally Once a day; Duration: 30 day(s) Active levETIRAcetam 250 MG TAKE ONE TABLET BY MOUTH TWICE A DAY Oral; Duration: 30 Active Immunizations Vaccine Route Administration Date Status Comme nts Influenza Unknown 01/12/2022 Administered Social History AUDIT-C (Standard) Question Answer Notes Did you have a [...] (0 point) How often did you have six o r more drinks on one occasion in the past year? 2 to 4 times a month (2 points) Points 5 Interpretation Positive Section Notes: will drink a beer couple rosanne es a week Problems Problem Type SNOMED Code ICD Code Onset Dates Problem Status W/U Status Risk Notes Problem Colon cancer screening (736562518) Colon cancer screening (Z12.11) Active confirmed Problem Acute gastric ulcer without hemorrhage, without perforation AND without obstruction (31644074) Acute gastric ulcer without hemorrhage or perforation (K25.3) Active confirmed Problem Gastroesophageal reflux disease (012546213) GERD (gastroesophageal reflux disease) (K21.9) Active confirmed Problem Gastroesophageal reflux disease (255568938) Gastroesophageal reflux disease, unspecified whether esophagitis present (K21.9) Active confirmed Vital Signs Heart Rate 72 /min 12/12/2024 Temperature 98.0 degrees Fahrenheit 12/12/2024 Blood pressure diastolic 01 mm Hg 12/12/2024 Height 68 in 12/12/2024 Blood pressure systolic 001 mm Hg 12/12/2024 Weight 176.6 lbs 12/12/2024 BMI 26.85 kg/m2 12/12/2024 Encounters Encounter Location Date Provider Diagnosis [facility] Outpatient [address] [place] [id number] 07/10/2024 Jama Waite Jr Gastric ulcer K25.9 [facility] [address] [place] [phone] 02/23/2024 Jama Waite Jr Acute gastric ulcer without hemorrhage or perforation K25.3 and Colon cancer screening Z12.11 [facility] [address] [phone] 12/12/2024 Jama Waite Jr Gastric intestinal metaplasia K31.A0 and GERD (gastroesophageal reflux disease) K21.9 [facility] [address] [place] [phone] 05/07/2024 Jama Waite Jr [facility] [address] [phone] 07/13/2024 Jama Waite Jr Assessments Encounter Date [...] He is up-to-date on colorectal cancer screening. 12/12/2024 Gastric intestinal metaplasia (ICD-10 - K31.A0) We discussed gastroesophageal reflux disease and gastric intestinal metaplasia. His omeprazole dose is increased to 40 mg because of symptoms. Further evaluation with upper endoscopy will be arranged in the fall for gastric mapping and determination of extent city of involvement with gastric intestinal metaplasia. He understands risks and benefits of the procedure and agrees to proceed. Follow-up will be in the future pending these results. Today's visit was 30 minutes. 12/12/2024 GERD (gastroesophage al reflux disease) (ICD-10 - K21.9) We discussed gastroesophageal reflux disease and gastric intestinal metaplasia. His omeprazole dose is increased to 40 mg because of symptoms. Further evaluation with upper endoscopy will be arranged in the fall for gastric mapping and determination of extent city of involvement with gastric intestinal metaplasia. He understands risks and benefits of the procedure and agrees to proceed. Follow-up will be in the future pending these results. Today's visit was 30 minutes. Plan Of Treatment Future Test Test Name Order Date COLONOSCOPY 09/15/2012 UPPER GI ENDOSCOPY 01/03/2023 COLONOSCOPY 01/03/2023 UPPER GI ENDOSCOPY 03/01/2024 UPPER GI ENDOSCOPY 12/12/2024 Next Appt Details Provider Name:Jama toro Jr, 03/15/2025 09:50:00 AM, [address] [place] [address] , [place], [place], [phone], Insurance Providers Payer Name Payer Address Payer Phone Subscriber Number Group Number Insured Name Patient Relationship to Insured Coverage Start Date Coverage End Date [facility] [address] [address] [place] [address] [phone] [id number] YOANA CASTANEDA Self - patient is the insured MEDICAID OF [facility] [address] [place] [phone] [id number] YOANA CASTANEDA Self - patient is the insured Medical (General) History Medical History History ICD Code Hypertension Hyperlipidemia Colonoscopy 03/17, normal, ten-year foll owup Gastroesophageal reflux dise ase, EGD in 03/17, antral ulcers, high-dose PPI, Follow-up endoscopy 07/17 gastric intestinal metaplasia on antral biopsies, no H. pylori. No Macias's esophagus. Repeat endoscopy for gastric mapping Seizure disorder Surgical History Surgery Date(Month/Year) left knee replacement 2005 right knee replacement 2007
--- NOTE | 2025-03-12 13:26 | HO.ANESPROP2 ---
Documented by User: Giselle Ortega NP 03/12/25 13:30 HPI - Anesthesia Eval Consult details Narrative: 64 yr old male for colonoscopy ETOH use disorder with alcohol withdrawal seizure: none in 4 yrs, stable on Keppra, following with neuro Marijuana use PMFSH Active Problems Active Problems: All Active Problems (Updated 02/22/25 @ 10:16 by KIMBERLEY Cerna) Alcohol use disorder in remission (Acute) Leg cramping (Acute) History of seizure due to alcohol withdrawal (Acute) Right shoulder tendonitis (Acute) Elevated glucose (Acute) GERD (gastroesophageal reflux disease) (Acute) High cholesterol (Acute) Hypertension (Acute) Left knee pain (Acute) History of left knee replacement (Acute) Past Medical History Medical History Wears dentures GERD (gastroesophageal reflux disease) Hx of seizure disorder Hypertension High cholesterol Family History Family History Mother No problems noted. Father No problems noted. Surgical History Surgical History S/P blepharoplasty History of esophagogastroduodenoscopy (EGD) (03/23/23) Status post left knee replacement H/O colonoscopy (03/23/23) Status post right knee replacement History of Problems with Anesthesia: No Social History Social History Household Members: [facility] Are you a primary residential caregiver to a significant other at home: No Do you presently have visiting nurse or other home services: No Patient Tobacco Use Status: Former Tobacco user e-Cigarette/Vaping Use: Former Use Use of substances other than those prescribed or required for medical reasons: Yes Substance Use Type: Marijuana Are you DNR?: No Advance Directives: No Advance Directives Information Provided: Yes service: No Current occupational status: retired Cognitive needs: No Hearing needs: No Vision needs: No Meds Allergies Allergy/AdvReac Type Severity Reaction Status Date / Time No Known Allergies Allergy Mild NOT Verified 02/22/25 07:30 APPLICABLE Home Medications ?Medication ?Instructions ?Recorded ?Confirmed ?Last Taken ?Type omeprazole 40 mg capsule,delayed 40 mg PO QAM 02/22/25 03/13/25 Unknown History release Exam Pertinent Lab Results Pertinent Lab Results: Laboratory Tests 03/29/24 02/25/25 07:09 06:45 WBC 6.6 RBC 4.50 L Hgb 13.8 L Hct 40.1 L Plt Count 272 Sodium 141 Potassium 3.8 Chloride 104 BUN 18 H Creatinine 0.60 Assessment and Plan Final Anesthetic Review History of Problems with Anesthesia: No Documented by User: Marilyn Hugo MD 03/15/25 09:21 PMFSH Past Medical History Medical History Wears dentures GERD (gastroesophageal reflux disease) Hx of seizure disorder Hypertension High cholesterol Family History Family History Mother No problems noted. Father No problems noted. Family history of problems with anesthesia: No Surgical History Surgical History S/P blepharoplasty History of esophagogastroduodenoscopy (EGD) (03/23/23) Status post left knee replacement H/O colonoscopy (03/23/23) Status post right knee replacement Social History Social History Household Members: Spouse Housing: Condominium Are you a primary residential caregiver to a significant other at home: No Do you presently have visiting nurse or other home services: No Patient Tobacco Use Status: Former Tobacco user e-Cigarette/Vaping Use: Former Use Use of substances other than those prescribed or required for medical reasons: Yes Substance Use Type: Marijuana Are you DNR?: No Advance Directives: No Advance Directives Information Provided: Yes service: No Current occupational status: retired Cognitive needs: No Hearing needs: No Vision needs: No Meds Allergies Allergy/AdvReac Type Severity Reaction Status Date / Time No Known Allergies Allergy Mild NOT Verified 02/22/25 07:30 APPLICABLE Home Medications ?Medication ?Instructions ?Recorded ?Confirmed ?Last Taken ?Type omeprazole 40 mg capsule,delayed 40 mg PO QAM 02/22/25 03/13/25 Unknown History release Exam Airway Mallampati Class: II TM Dist: >3cm Neck ROM: Full Heart: rrr Lungs: cta Assessment and Plan Assessment Anesthesia Assessment: Anesthesia Plan Discussed and Chart Reviewed Final Anesthetic Review Family History of Problems with Anesthesia: No NPO: Yes ASA Class: III Final Preanesthetic Review: No Changes in Pt Med Stat, Meds/Allgs Chart Reviewed, Consent Obtained/Reviewed and Anes Risks/Benef Reviewed Patient Risk: Intermediate Procedure Risk: Low Anesthetic Plan Anesthetic Plan: MAC: and Agree w/ Assess. and Plan Disposition: Standard PACU
[2025-03-13 13:18] VITALS: BMI 26.8
[2025-03-15 08:39] VITALS: BMI 26.9
[2025-03-15 08:42] VITALS: BP 150/78; PULSE 71; RESP 16; TEMP 36.4; O2SAT 96
[2025-03-15] MEDS: Lactated Ringers 1,000 ML 100 ML IVCONT (08:53)
--- NOTE | 2025-03-15 09:57 | MHC.SHP ---
Pre-Procedural Eval Section A - 24 Hr Update-Section A only Date of Service: 03/15/25 Section B - Complete if H&P > 30 days Chief Complaint: Gastric intestinal metaplasia, unspecified Details of Present Illness: see H&P no changres Relevant Family History (Specify if Yes): No Relevant Social History: None Present Medications: see Short Stay Collaborative assessment Medical History: No relevant PMH Allergies: Allergies Allergy/AdvReac Type Severity Reaction Status Date / Time No Known Allergies Allergy Mild NOT Verified 02/22/25 07:30 APPLICABLE Review of Systems Sugical H&P ROS: Negative: Constitution, Cardiovascular, Respiratory, Neurological, Psychiatric, Hem-Onc, Allergic/Immunologic, Gastrointestinal, Genitourinary, Musculoskeletal, Integumentary, Endocrine and Eyes/Ears/Nose/Throat Exam Surgical H&P Exam: Normal: HEENT, Normal: Heart, Normal: Lungs, Normal: Extremities, Normal: Abdomen, Normal: Skin and Normal: Neurological Plan Diagnosis/Plan: Unchanged I have reviewed the history and physical and performed a pertinent physical examination on my patient. No changes have occurred unless specified. Time Spent With Patient Time: Total time managing care of this patient today ____ minutes.
[2025-03-15 10:28] VITALS: BP 132/66; PULSE 69; RESP 16; TEMP 36.1; O2SAT 98
[2025-03-15 10:42] VITALS: BP 135/76; PULSE 56; RESP 15; TEMP 36.6; O2SAT 98
--- NOTE | 2025-03-15 11:19 | OP_ITS ---
DATE OF SERVICE: 03/15/2025 SURGEON: Jama Waite MD INDICATIONS: Gastrointestinal metaplasia. PREOPERATIVE DIAGNOSIS: POSTOPERATIVE DIAGNOSIS: PROCEDURE PERFORMED: Upper endoscopy with biopsy. ESTIMATED BLOOD LOSS: COMPLICATIONS: ANESTHESIA: Monitored anesthesia care. ASSISTANTS: SPECIMENS: DESCRIPTION OF PROCEDURE: A history and physical was performed. The risks and benefits of the procedure were explained to the patient. Informed consent was obtained. The patient was placed in the left lateral decubitus position. The Olympus video gastroscope was introduced into the esophagus, stomach, and duodenum. Examination was performed. The scope was removed. He tolerated the procedure well and was returned to the recovery area in stable condition. FINDINGS: Esophagus: The esophagus showed an irregular EG junction. This was biopsied. Stomach: The stomach showed no evidence of masses, ulcers, or polyps. Biopsies were obtained throughout the stomach because of the patient's history of gastrointestinal metaplasia. Duodenum: The bulb and 2nd portion were normal. IMPRESSION: Gastrointestinal metaplasia. RECOMMENDATION: Follow up the biopsy results. MD JANES Matos/KRISTINL / [id number]
== END 2025-03-15 11:02 | disposition home or self-care (01) ==
PROVIDERS: PCP Internal Medicine; Visit Provider Internal Medicine Gastroenterology
PROC: 0DJ08ZZ Inspection of Upper Intestinal Tract, Via Natural or Artificial Opening Endoscopic (ICD-10-PCS; CPT 43235; principal; 2025-03-15 10:00)
DX: K31.A11 Gastric intestinal metaplasia without dysplasia, involving the antrum (principal); K21.9 Gastro-esophageal reflux disease without esophagitis
CPT/HCPCS: 43239; 88305; 88313; 88342; J2704